=== PATIENT | male | born 1935 | race Caucasian/White ===

== ENCOUNTER 2017-12-26 13:29 | Outpatient (CLI) | payer MEDICARE ==
--- NOTE | 2017-12-26 15:32 | ULT ---
BILATERAL LOWER EXTREMTIY VENOUS DOPPLER WITH SPECTRAL ANALYSIS AND COLOR FLOW EVALUATION: Date: 12-26-17 History: Claudication in both lower extremity. Venostasis dermatitis of both lower extremities. FINDINGS: Grayscale, color flow, and doppler evaluation with spectral analysis of the bilateral lower extremity venous structures is performed with 2D imaging. The bilateral lower extremity common femoral, superf icial femoral, popliteal, posterior tibial, and most proximal greater saphenous and profunda femoral veins bilateral lower extremities are imaged. There is increased echogenic material and decreased lumen compressibility involving the majority of t he bilateral lower extremity deep venous structures including the right lower extremity common femora l, proximal mid superficial femoral, posterior tibial, and profunda femoral veins as well as the left lower extremity common femoral, mid and distal superficial femoral, and profunda femoral veins. Ther e is flow within these veins although there is diminished flow suggesting nonocclusive thrombus. IMPRESSION: 1. Extensive nonocclusive thrombus seen throughout the visualized bilateral lower extremity deep veno us structures. There was partially occlusive bilateral lower extremity thrombus on a prior study on with near complete thrombosis left lower extremity also on that prior exam. 3. Above findings were discussed with Dr. Marin on 12-26-17 at 1454 hours. While there is no eviden ce of an occlusive thrombus on today's examination, the thrombus does appear more extensive than on t he prior study. While there is likely remote thrombus, there has been interval development and progr ession of DVT compared to prior exam. POS: [facility]
--- NOTE | 2017-12-29 07:17 | ULT ---
BILATERAL LOWER EXTREMITY ARTERIAL DOPPLER WITH SPECTRAL ANALYSIS AND COLOR FLOW EVALUATION: Date: 12-26-17 History: Peripheral vascular disease, claudication of bilateral lower extremities, venostasis, dermat itis of both lower extremities. Comparison: None available. FINDINGS: Grayscale, color flow, doppler evaluation, spectral analysis of bilateral lower extremity arterial v essels is performed with 2D imaging. There is atherosclerotic plaque seen throughout the bilateral lower extremity arterial vessels some o f which is calcified. The is triphasic waveform present in the right common femoral artery but the peak systolic velocity i s diminished at 54.1 cm/sec which could be related to a more proximal stenosis. Triphasic waveform is also seen within the right lower extremity profunda femoral artery. There is biphasic waveform in th e right lower extremity suprafascial femoral artery with monophasic waveforms involving the distal ri ght superficial femoral as well as tibial arteries. The popliteal artery is unable to be visualized a nd may be occluded versus severe narrowing of the popliteal artery on the right. In addition, flow is unable to be obtained in the dorsalis pedis artery. Biphasic waveforms are seen involving the left lower extremity common femoral, superficial femoral, p rofunda femoral and popliteal arteries with monophasic waveforms seen within the anterior tibial and dorsalis pedis arteries. No flow is demonstrated within the left lower extremity posterior tibial art jamir. IMPRESSION: 1. Diffuse atherosclerotic vascular disease seen throughout the lower extremity arterial vessels, gre atest involving the below the knee arterial vessels with probable occlusion of the right popliteal ar maxwell. There is also probable occlusion of the left lower extremity posterior tibial and right lower e xtremity dorsalis pedis arteries. 2. Diminished peak systolic velocity in the right common femoral artery compared to the left which co uld be related to inflow stenosis. 3. Ankle brachial indices were not performed due to bilateral lower extremities DVTs. POS: [facility]
== END 2017-12-26 13:30 | disposition home or self-care (01) ==
LOC: ULT 13:29
PROVIDERS: ATTEND Family Medicine
DX: I73.9 Peripheral vascular disease, unspecified (principal); I87.2 Venous insufficiency (chronic) (peripheral); I70.209 Unspecified atherosclerosis of native arteries of extremities, unspecified extremity
CPT/HCPCS: 93923; 93970

== ENCOUNTER 2018-02-16 09:39 | Outpatient (CLI) | payer MEDICARE ==
--- NOTE | 2018-02-18 11:15 | RAD ---
MODIFIED BARIUM SWALLOW: Date: 02/16/18 EXPOSURE: 35.7 seconds. 17.78 mGy*cm^2. HISTORY: Dysphagia unspecified. Feeding difficulties. COMPARISON: None. FINDINGS: Patient administered puree, nectar-thick, thin liquid, and mechanical soft consistencies. No evidenc e of penetration or aspiration. Please refer to speech pathologist's report for feeding recommendatio n. IMPRESSION: As above. POS: [facility]
== END 2018-02-16 09:40 | disposition home or self-care (01) ==
PROVIDERS: ATTEND Family Medicine
DX: R13.10 Dysphagia, unspecified (principal); R63.3 Feeding difficulties
CPT/HCPCS: 74230; G8996-GN-CI; G8997-GN-CI; G8998-GN-CI

== ENCOUNTER 2018-08-07 12:51 | Inpatient (IN) | payer MEDICARE ==
[2018-08-07 13:33] LABS: #Basophils 0.1 thou/uL (0.0-0.2); #Eosinphils 0.1 thou/uL (0.0-0.7); #Lymphocytes 2.6 thou/uL (1.20-3.40); #Monocytes 0.5 thou/uL (0.11-0.59); #Neutrophils 4.8 thou/uL (1.40-6.50); %Basophils 0.7 % (0.0-1.0); %Eosinophils 1.8 % (0.0-10.0); %Lymphocytes 31.7 % (21.0-51.0); %Monocytes 6.5 % (0.0-10.0); %Neutrophils 59.2 % (42.0-75.0); Hemoglobin 12.8 g/dL (14.0-18.0); Mean Corpuscular HGB CONC 33.8 g/dL (32.0-36.0); Mean Corpuscular Hemoglobin 34.9 pg (27.0-31.0); Mean Platelet Volume 5.9 fL (7.4-10.4); Platelet Count 443 thou/uL (130-400); RBC Distribution Width 16.3 % (11.5-14.5); Red Blood Cell (RBC) Count 3.68 mill/uL (4.70-6.10); White Blood Cell (WBC) Count 8.1 thou/uL (4.8-10.8)
[2018-08-07 13:53] LABS: ALT (SGPT) Less than 7 U/L (8-55); AST (SGOT) 15 U/L (5-34); Albumin 2.7 g/dL (3.4-4.8); Alkaline Phosphatase 121 U/L (40-150); BUN (Urea Nitrogen) 5 mg/dL (8.4-25.7); Bilirubin, Total 0.9 mg/dL (0.2-1.2); Calc. Creatinine Clearance 0 mL/min (70-130); Calcium 7.9 mg/dL (7.8-10.44); Estimated GFR-MDRD Greater than 90; Globulin 3.2 g/dL (2.4-3.5); Glucose 107 mg/dL (83-110); Magnesium 1.6 mg/dL (1.6-2.6); Protein, Total 5.9 g/dL (5.8-8.1)
[2018-08-07 13:56] LABS: Chloride 92 mmol/L (98-107); Sodium 140 mmol/L (136-145)
[2018-08-07 14:19] LABS: Carbon Dioxide 31 mmol/L (23-31)
[2018-08-07 14:23] LABS: Potassium 2.5 mmol/L (3.5-5.1)
[2018-08-07] MEDS ORDERED: Potassium Chloride 20 MEQ TAB ONE (14:46)
[2018-08-07 15:29] LABS: Anion Gap 20 mmol/L (10-20)
[2018-08-07 18:12] LABS: Bilirubin Negative (Negative); Blood, Urine Negative (Negative); Clarity CLEAR (Clear); Glucose, Urine (Dipstick) Negative (Negative); Leukocyte Negative (Negative); Nitrite Negative (Negative); Protein, Urine (Dipstick) Negative (Neg-Trace); Specific Gravity, Urine 1.004 (1.002-1.036); pH, Urine 7.5 (5.0-9.0)
[2018-08-07] MEDS ORDERED: Acetaminophen 500 MG TAB PO PRN (20:11)
[2018-08-07 20:50] VITALS: BMI 23.9
[2018-08-07] MEDS ORDERED: Tamsulosin HCl 0.4 MG CAP PO SCH (21:00)
[2018-08-07] MEDS: D5 1/2 NS w/40 mEq KCL 1,000 ML IV SCH (21:44)
[2018-08-07] MEDS: Magnesium Oxide 400 MG TAB PO SCH (21:44)
[2018-08-07] MEDS: Mirtazapine 15 MG TAB PO SCH (21:44)
[2018-08-07] MEDS: Megestrol Acetate 40 MG TAB PO SCH (21:44)
[2018-08-07] MEDS: Apixaban 2.5 MG TAB PO SCH (21:44)
--- NOTE | 2018-08-07 21:57 | HP ---
PRIMARY CARE PHYSICIAN: Russell Marin MD CHIEF COMPLAINT: Hypokalemia and fatigue. HISTORY OF PRESENT ILLNESS: The patient was undergoing routine labs for followup in clinic with myself this morning when critical lab of low potassium approximately 2.5 and 2.7, was called out to my nurse notified the patient and spoke with his daughter regarding likely need for IV replenishment and cardiac risk. They presented to the emergency department for evaluation and was given potassium chloride and magnesium. The patient's EKG was reported to be stable. The patient has macrocytic findings on cell counts and has no current cough, although he has history of aspiration risk , has been on a modified diet pureed, mechanically soft chopped. The patient was seen in the hospital for modified-barium swallow last February for dysphagia and difficulty swallowing. The patient has no acute complaints, states he is compliant with diet changes, but a family member at bedside states that even though he does eat when he is offered meals, he picks at food largely and has quit to Boost shakes as they have given diarrhea, which resolves when he no longer drinks them. ALLERGIES: INCLUDE BEE STINGS AND TETANUS. PAST MEDICAL HISTORY: Colon cancer, hypertension, hyperlipidemia, anemia, glaucoma, urinary retention, claudication, venous stasis dermatitis of lower extremities, history of DVT in lower extremities, osteoarthritis, history of dysphagia. The patient is followed by Dr. Harp for his history of colon cancer and Dr. Parker for urinary retention, Urology. HOME MEDICATIONS: Include Boost shakes t.i.d., he is no longer taking; nystatin ointment p.r.n. for yeast infections; finasteride 5 mg; Eliquis 2.5 mg twice daily. The patient was recommended to take vitamin supplements for his history of folic acid deficiency and macrocytic anemia; however, he discontinued those as well. PAST SURGICAL HISTORY: Including right hemicolectomy with Dr. Harp in 2016 and an appendectomy in 1968. SOCIAL HISTORY: The patient is a former smoker. Denies any alcohol or illicit drug use currently. Lives with spouse with daughter next door for social support. REVIEW OF SYSTEMS: For more review of systems, the patient denies fevers or chills, headaches, vision changes, although has baseline blurred vision given glaucoma. Reports changes in taste buds, decreased appetite, fatigue. No cough. No chest pain. No palpitations. No abdominal pain. Resolved diarrhea once Boost shakes discontinued. No current skin rash or reported breakdown; however, positive lower extremity edema. There have been no skin ulcerations. No confusion. Positive mild depressive symptoms. On speaking with the patient regarding code status, he states he is still full code. He has his spouse to take care of and this is largely his reasoning for staying at home and not progressing towards assisted living facility. He is much more amicable towards palliative route regarding any feeding tube necessary to sustain his life, he does not want this, he is not yet ready to discuss DNR/DNI as per his spouse as above. I spoke with daughter at bedside, verbalized understanding and echoed the patient's desire to remain with his spouse on this earth at this point in time, but not wanting aggressive therapies for feeding tube or the like. PHYSICAL EXAMINATION: GENERAL: The patient is alert and oriented, in no acute distress. HEENT: Head is normocephalic and atraumatic. Temporal wasting is noted. Oral mucosa is moist. No thrush present. HEART: Regular rate and rhythm. No murmurs auscultated. LUNGS: Clear to auscultation bilaterally. No rubs or wheezes. ABDOMEN: Soft, nontender. Positive bowel sounds throughout. EXTREMITIES: Lower extremities with pitting edema 2+ bilaterally. No cyanosis present. NEUROLOGIC: The patient alert and oriented x3. No focal deficits. Speech is normal. ASSESSMENT AND PLAN: Severe hypokalemia and protein malnutrition, severe. Would have to follow up on patient's weight from prior visits, but looking like adult failure to thrive. We will consult Speech Therapy for history of dysphagia with the patient's modified diet. Physical Therapy to help mobilize the patient. Dietary to help recommendations for something other than Boost shakes, they may be too rich for his malnutrition and caused dumping syndrome. Regarding diarrhea, may need to titrate it more slowly, but he is obviously not meeting his daily requirements. We will perform IV fluids overnight to rehydrate and then consider diuretics to help lower extremity edema and mobilization, and going forward tomorrow, restart the patient's magnesium oxide that he self discontinued prior along with B vitamins, continue the patient's home Flomax, finasteride, Eliquis for history of DVT. We will follow up on potassium trend tomorrow. Will consider a throat culture here in case the patient has underlying bacterial or fungal infection given his malnutrition. At this point in time, we would not seek to get feeding tube per patient's wishes. May consider palliative consultation for any additional discomfort, the patient is feeling. Continue potassium and mag trend and replacement. Job ID: [id number] MTDD
[2018-08-08 06:27] LABS: ALT (SGPT) Less than 7 U/L (8-55); AST (SGOT) 15 U/L (5-34); Alkaline Phosphatase 85 U/L (40-150); Anion Gap 6 mmol/L (10-20); BUN (Urea Nitrogen) Less than 4 mg/dL (8.4-25.7); Bilirubin, Total 0.9 mg/dL (0.2-1.2); Calc. Creatinine Clearance 92 mL/min (70-130); Calcium 7.3 mg/dL (7.8-10.44); Carbon Dioxide 35 mmol/L (23-31); Chloride 103 mmol/L (98-107); Estimated GFR-MDRD Greater than 90; Globulin 2.6 g/dL (2.4-3.5); Glucose 116 mg/dL (83-110); Magnesium 1.4 mg/dL (1.6-2.6); Protein, Total 4.6 g/dL (5.8-8.1); Sodium 142 mmol/L (136-145)
[2018-08-08 06:30] LABS: Potassium 2.4 mmol/L (3.5-5.1)
[2018-08-08] MEDS ORDERED: Magnesium 2 GM/50 ML 2 GM in Premix Bag 1 BAG IVPB SCH (06:45)
[2018-08-08] MEDS ORDERED: Potassium Chloride 40 MEQ in Premix Bag 1 BAG IVPB SCH (06:45)
[2018-08-08] MEDS ORDERED: Potassium Chloride 20 MEQ TAB PO SCH ×2 (08:00→13:15)
[2018-08-08] MEDS: D5 1/2 NS w/40 mEq KCL 1,000 ML IV SCH (08:16)
[2018-08-08] MEDS: Finasteride 5 MG TAB PO SCH (08:20)
[2018-08-08] MEDS: Multivitamin W/ Minerals 1 TAB PO SCH (08:20)
[2018-08-08] MEDS: Thiamine 100 MG TAB PO SCH (08:20)
[2018-08-08] MEDS: Apixaban 2.5 MG TAB PO SCH ×2 (08:20→20:49)
[2018-08-08] MEDS: Cyanocobalamin (Vitamin B-12) 1,000 MCG TAB PO SCH (08:20)
[2018-08-08] MEDS: Megestrol Acetate 40 MG TAB PO SCH ×3 (08:20→20:49)
[2018-08-08] MEDS: Tamsulosin HCl 0.4 MG CAP PO SCH (08:21)
[2018-08-08] MEDS: Fluconazole 100 MG TAB PO SCH (08:21)
[2018-08-08] MEDS: Folic Acid 1 MG TAB PO SCH (08:21)
[2018-08-08] MEDS: Magnesium Oxide 400 MG TAB PO SCH ×2 (08:21→20:49)
[2018-08-08] MEDS: Potassium Chloride 20 MEQ in Premix Bag 1 BAG IVPB SCH ×2 (09:14→11:07)
--- NOTE | 2018-08-08 11:23 | RAD ---
TWO VIEWS CHEST: DATE: 08/08/2018. PROVIDED CLINICAL HISTORY: Aspiration. FINDINGS: Comparison 04/04/2016. Cardiac and mediastinal silhouette is unchanged in appearance. Vascular calc ification involves the aortic arch. No focal consolidation, pleural fluid, or pneumothorax apparent. IMPRESSION: No evidence for an acute cardiopulmonary process. POS: [facility]
--- NOTE | 2018-08-08 12:36 | PRG ---
DATE OF SERVICE: 08/08/2018 HISTORY OF PRESENT ILLNESS: The patient states that he was unable to sleep given everything going on in the hospital with IV fluid rehydration. He had urinary retention, that was found by nursing staff after having lots of pain and pressure in lower pelvis. He did have episode of diarrhea that was reported nonbloody. His pain was relieved by Pérez catheter placement after bladder scan showed 900 mL retention plus. The patient continues to feel fatigued, possibly even more so today after he has not slept very well in the last 2 days. Potassium this morning came back critical again. The patient had magnesium and potassium replacement IV again this morning with trend to follow. The patient verbalized understanding. Continuation of plan was physical therapy, speech therapy, and dietitian consultations. Again his wishes were not to pursue feeding tube at this point in time. PHYSICAL EXAMINATION: VITAL SIGNS: Temperature of 97.4, pulse of 76, respiratory rate of 15, oxygen saturation 97% on room air, and blood pressure of 93/54. GENERAL: The patient is alert and oriented, in no acute distress. HEENT: Head is normocephalic and atraumatic. Extraocular movements are intact. Temporal wasting is noted. Oral mucosa is moist. NECK: Supple. HEART: Regular rate and rhythm at the time of exam. LUNGS: Clear to auscultation bilaterally. No rubs or wheezes. ABDOMEN: Soft and nontender. Positive bowel sounds throughout. Pérez catheter in place. EXTREMITIES: Lower extremity with improving pitting edema, however, still 1+. The patient has not been out of bed since admission. This is likely, we will transition towards the patient's buttocks and testicles over the next several days, discussed with the patient. NEUROLOGIC: The patient is alert and oriented x3. No focal deficits. Speech is normal. LABORATORY DATA: Potassium this a.m. of 2.4, sodium of 142, creatinine of 0.59, and magnesium of 1.4. Albumin of 2.0. Following IV rehydration, repeat pending at approximately noon today following magnesium and potassium IV replenishment. Chest x-ray without acute cardiopulmonary events. Pending oral mucosal throat culture. ASSESSMENT AND PLAN: 1. Hypokalemia, severe. 2. Hypomagnesemia. 3. Malnutrition, severe. 4. Adult failure to thrive. 5. Depression. 6. Dysphagia. 7. BPH with obstructive symptoms. We will continue to trend electrolytes as above with replacement and hopefully transition to orals. The direct line of cause is likely the patient's malnutrition. However, he may have some element of dumping syndrome with rich foods, so this may be difficult to re-nurse him quickly. We will seek dietary's advice on calorie counts. Going forward, having speech therapy and physical therapy re-evaluate the patient. Continuing with Pérez catheter for obstructive symptoms and otherwise, his home finasteride and tamsulosin. Started Remeron as well as Megace to attempt to help improve mood and appetite stimulation. This will need to be reassessed over the next following days to weeks to see full effect. We will follow up on electrolytes this afternoon. Job ID: [id number]
[2018-08-08 13:01] LABS: Anion Gap 8 mmol/L (10-20); BUN (Urea Nitrogen) 4 mg/dL (8.4-25.7); Calc. Creatinine Clearance 95 mL/min (70-130); Calcium 7.4 mg/dL (7.8-10.44); Carbon Dioxide 35 mmol/L (23-31); Chloride 102 mmol/L (98-107); Estimated GFR-MDRD Greater than 90; Glucose 94 mg/dL (83-110); Sodium 142 mmol/L (136-145)
[2018-08-08 13:07] LABS: Potassium 2.9 mmol/L (3.5-5.1)
[2018-08-08] MEDS: Potassium Chloride 20 MEQ TAB PO SCH (16:57)
[2018-08-08 20:00] LABS: Anion Gap 8 mmol/L (10-20); BUN (Urea Nitrogen) 5 mg/dL (8.4-25.7); Calc. Creatinine Clearance 89 mL/min (70-130); Calcium 7.9 mg/dL (7.8-10.44); Carbon Dioxide 35 mmol/L (23-31); Chloride 101 mmol/L (98-107); Estimated GFR-MDRD Greater than 90; Glucose 94 mg/dL (83-110); Potassium 3.6 mmol/L (3.5-5.1); Sodium 140 mmol/L (136-145)
[2018-08-08] MEDS: Mirtazapine 15 MG TAB PO SCH (20:49)
[2018-08-09 06:18] LABS: #Eosinphils 0.4 thou/uL (0.0-0.7); #Lymphocytes 2.3 thou/uL (1.20-3.40); #Monocytes 0.5 thou/uL (0.11-0.59); #Neutrophils 4.4 thou/uL (1.40-6.50); %Basophils 0.4 % (0.0-1.0); %Eosinophils 5.1 % (0.0-10.0); %Lymphocytes 30.4 % (21.0-51.0); %Monocytes 6.5 % (0.0-10.0); %Neutrophils 57.5 % (42.0-75.0); Hemoglobin 10.2 g/dL (14.0-18.0); Mean Corpuscular HGB CONC 33.7 g/dL (32.0-36.0); Mean Corpuscular Hemoglobin 35.5 pg (27.0-31.0); Mean Platelet Volume 6.3 fL (7.4-10.4); Platelet Count 350 thou/uL (130-400); Red Blood Cell (RBC) Count 2.87 mill/uL (4.70-6.10); White Blood Cell (WBC) Count 7.6 thou/uL (4.8-10.8)
[2018-08-09 06:43] LABS: ALT (SGPT) Less than 7 U/L (8-55); AST (SGOT) 12 U/L (5-34); Albumin 1.9 g/dL (3.4-4.8); Alkaline Phosphatase 81 U/L (40-150); Anion Gap 9 mmol/L (10-20); BUN (Urea Nitrogen) 6 mg/dL (8.4-25.7); Bilirubin, Total 0.5 mg/dL (0.2-1.2); Calc. Creatinine Clearance 95 mL/min (70-130); Calcium 7.2 mg/dL (7.8-10.44); Carbon Dioxide 28 mmol/L (23-31); Chloride 105 mmol/L (98-107); Estimated GFR-MDRD Greater than 90; Globulin 2.5 g/dL (2.4-3.5); Glucose 94 mg/dL (83-110); Protein, Total 4.4 g/dL (5.8-8.1); Sodium 139 mmol/L (136-145)
[2018-08-09] MEDS ORDERED: Potassium Chloride 20 MEQ TAB PO SCH ×2 (07:30→12:45)
[2018-08-09] MEDS: Fluconazole 100 MG TAB PO SCH (08:59)
[2018-08-09] MEDS: Cyanocobalamin (Vitamin B-12) 1,000 MCG TAB PO SCH (08:59)
[2018-08-09] MEDS: Magnesium Oxide 400 MG TAB PO SCH ×2 (08:59→22:07)
[2018-08-09] MEDS: Megestrol Acetate 40 MG TAB PO SCH ×3 (08:59→22:07)
[2018-08-09] MEDS: Folic Acid 1 MG TAB PO SCH (08:59)
[2018-08-09] MEDS: Tamsulosin HCl 0.4 MG CAP PO SCH (08:59)
[2018-08-09] MEDS: Potassium Chloride 20 MEQ TAB PO SCH (08:59)
[2018-08-09] MEDS: Finasteride 5 MG TAB PO SCH (08:59)
[2018-08-09] MEDS: Apixaban 2.5 MG TAB PO SCH ×2 (08:59→22:07)
[2018-08-09] MEDS: Multivitamin W/ Minerals 1 TAB PO SCH (08:59)
[2018-08-09] MEDS: Thiamine 100 MG TAB PO SCH (08:59)
--- NOTE | 2018-08-09 13:14 | PRG ---
DATE OF SERVICE: 08/09/2018 HISTORY OF PRESENT ILLNESS: The patient is not sleeping very well as he is continuously struggling with flatus and in his terms explosive diarrhea. He will feel an urge coming on and only pass gas, move to commode back and forth, but only have a bowel movement approximately every 3 trips, compared to flatus. States that this has gone on outpatient as well regarding diarrhea that comes and goes over the last several months. Seems to be worse with certain foods. He particularly is blaming the Boost Ensure shakes, but is compliant with current medications including potassium replacement. Denies any blood in stool at this point in time, is amicable to stool studies and Gastroenterology evaluation for his diarrhea complicating his replacement of potassium at this point in time. He states he is making a concerted effort to eat much more of his plate. He ate eggs, sausage and ancillary offering this morning for breakfast. Review of vital signs, temperature 98.3, pulse of 85, respiratory rate of 20, oxygen saturation 98% on room air. Blood pressure 97/63. Throat culture is normal. Potassium this morning is 3.0, sodium 139, creatinine of 0.5, albumin 1.9, hemoglobin of 10.2, white blood cell count 7.6, platelet count of 330. PHYSICAL EXAMINATION: GENERAL: The patient is alert and oriented, in no acute distress. HEENT: Head is normocephalic and atraumatic. Temporal wasting is noted. Oral mucosa is moist. HEART: Regular rate and rhythm. No murmurs auscultated. LUNGS: Clear to auscultation bilaterally. No rubs or wheezes. ABDOMEN: Soft, nontender. Positive bowel sounds throughout. EXTREMITIES: Lower extremities without cyanosis or edema. Some third spacing noted more toward the buttock today on exam. NEUROLOGICAL: Speech is normal. No focal deficits. ASSESSMENT AND PLAN: Severe hypokalemia, improving. However, gastrointestinal losses with diarrhea complicating the picture. Increasing oral replacement to a total of 100 mEq per day today with replacement on each meal. Continuing magnesium supplementation as well as Boost shakes at this point in time. I consulted Gastroenterology to evaluate for possible dumping syndrome, testing stools for any infectious causes, continuing patient's medications Megace as well as mirtazapine for a boost in appetite and mood improvement. Regarding patient's adult failure to thrive, Speech Therapy evaluated the patient, does recommend home health speech therapy going home but reiterated mechanical soft diet this admission. The patient is still with Pérez catheter at this point in time given his BPH with obstructive symptoms. Following up on culture once it is read as Gram negative rods low colony-forming units initially. We will treat as indicated per final culture report. We will continue to trend and replace electrolytes for the time being and follow up on stool and gastrology recommendations for prevention of further GI losses. Job ID: [id number]
[2018-08-09 17:20] LABS: Anion Gap 8 mmol/L (10-20); BUN (Urea Nitrogen) 9 mg/dL (8.4-25.7); Calc. Creatinine Clearance 76 mL/min (70-130); Calcium 7.5 mg/dL (7.8-10.44); Carbon Dioxide 30 mmol/L (23-31); Chloride 105 mmol/L (98-107); Estimated GFR-MDRD Greater than 90; Glucose 92 mg/dL (83-110); Potassium 4.1 mmol/L (3.5-5.1); Sodium 139 mmol/L (136-145)
[2018-08-09] MEDS: Mirtazapine 15 MG TAB PO SCH (22:07)
--- NOTE | 2018-08-10 02:26 | PRG ---
DATE OF SERVICE: 08/10/2018 HISTORY OF PRESENT ILLNESS: The patient has not had any further episodes of diarrhea or bowel movement since stool studies have been ordered. The patient has tolerated milk most of his life, but given his more severe reactions to boost, Dr. Elmore mentioned possible allergy to milk proteins. The patient is interested in potential food allergy testing and is able to verbalize understanding regarding improved potassium with goals to DC Pérez catheter and continue to push diet over the next 24 hours. If no further setbacks or interventions with Gastroenterology, potential discharge looking at Friday. Noted CEA and abdomen plain films pending. The patient has no acute complaints. Temperature of 99.9, heart rate of 102, respiratory rate of 18, oxygen saturation 99% on room air, blood pressure 99/59. A.m. labs are pending. We will add allergy panel on board. Last potassium at 1657 yesterday evening of 4.1, low colony-forming E coli was grown on urine. Throat culture was normal anna. PHYSICAL EXAMINATION: GENERAL: The patient is alert and oriented, in no acute distress. HEENT: Head is normocephalic and atraumatic. Temporal wasting is noted. Oral mucosa is moist. NECK: Supple. HEART: Regular rate and rhythm at the time of exam. No murmurs auscultated. LUNGS: Clear to auscultation bilaterally. No rubs or wheezes. ABDOMEN: Soft and nontender. Positive bowel sounds. EXTREMITIES: Throughout lower extremities without cyanosis or edema, some third spacing to buttocks on exam currently, Pérez catheter in place. NEUROLOGIC: The patient is alert and oriented x3. No focal deficits. Speech is normal. ASSESSMENT AND PLAN: 1. Hypokalemia, currently resolved. He was facing additional GI loss issue up until yesterday morning. If the patient does have diarrhea, we will follow up with stool studies as ordered and Gastroenterology's recommendations. Continue to replace potassium and magnesium orally with plan to continue this on an outpatient basis. Continuing Remeron and Megace for the time being for appetite stimulation given patient's protein malnutrition and difficulty of holding on to electrolytes secondarily complicating situation. We will attempt to DC Pérez catheter later today and follow up with patient's standard Proscar and tamsulosin as outpatient. Speech Therapy, Physical Therapy recommending home health continuation of therapy services, had consult Case Management yesterday for setting this up. We will allow them to meet with the family hopefully later today and set up for potential discharge on Friday if no further setbacks. The patient is currently anticoagulated with Eliquis for history of blood clots. Job ID: [id number] MTDD
--- NOTE | 2018-08-10 04:40 | CON ---
DATE OF CONSULTATION: 08/09/2018 CHIEF COMPLAINT: Diarrhea. HISTORY OF PRESENT ILLNESS: Mr. Bolden is an 83-year-old man who was admitted to the hospital on 08/07/2018 for hypokalemia and fatigue. He reported explosive liquidy stools, which was felt to be the cause of the hypokalemia. He believes he gets diarrhea 1 to 3 times per day and he also has multiple episodes of nonproductive urges, where he just passes gas. He did take some Boost shakes that caused immediate diarrhea at 3 different times, so he quit taking those. He has had the gas and intermittent diarrhea over the last year at least, if not longer. He has had no nausea or vomiting. No abdominal pain. He reports his weight is stable. GI was consulted to further evaluate diarrhea. He had colon cancer diagnosed in 02/2016 by colonoscopy and he subsequently underwent a right hemicolectomy in 02/2016. He was treated for Clostridium difficile colitis in 02/2016 as well. PAST MEDICAL HISTORY: Colon cancer, status post right hemicolectomy. It does not appear that he has had a followup colonoscopy since then. However, we would have to review our clinic record as well. The patient appears to have some memory problems. Hypertension, hyperlipidemia, myocardial infarction, history of alcohol abuse, C diff colitis, osteoarthritis, DVT, urinary retention, and glaucoma. PAST SURGICAL HISTORY: Right hemicolectomy, appendectomy, foot surgery. FAMILY HISTORY: Negative for GI malignancies. SOCIAL HISTORY: He has former history of alcohol abuse. No current smoking or drugs or ongoing alcohol use. ALLERGIES: TETANUS, BEE STING. MEDICATIONS: Prior to admission; 1. Finasteride. 2. Eliquis. 3. Tamsulosin. REVIEW OF SYSTEMS: Negative x10 systems reviewed except as stated in the history of present illness. PHYSICAL EXAMINATION: VITAL SIGNS: Temperature 99.9, pulse 102, and blood pressure 99/59. GENERAL: He is in no acute distress. Awake and alert. LUNGS: Clear to auscultation bilaterally. HEART: Regular rate and rhythm without murmur. HEENT: Eyes have no scleral icterus. Oropharynx is clear without lesions. No cervical or supraclavicular lymphadenopathy. ABDOMEN: Soft, nontender, and nondistended. Bowel sounds are present. EXTREMITIES: Trace lower extremity edema. LABORATORY DATA: White blood cell count 7.6, hemoglobin 10.2, and platelets 350. INR 1.3, creatinine 0.57. Bilirubin 0.5, AST 12, ALT 7, alkaline phosphatase 81, albumin 1.9. IMPRESSION: 1. Diarrhea with hypokalemia. We will need to rule out recurrent Clostridium difficile colitis. Stool study has been ordered. However, the patient has actually had no bowel movement today. Regarding the chronic diarrhea, other possibilities could include decreased related to his hemicolectomy. However, he should have been able to adapt to this. He does report significant dairy intake and lactose intolerance should be considered. He is not on medications expected to cause significant diarrheal side effect. 2. History of colon cancer. He does not appear to have had a followup colonoscopy, but we will need to access the medical records and we are able. I am currently unable to get into our office computer system. 3. Protein-calorie malnutrition. He does report some bloating after eating. RECOMMENDATIONS: 1. Stool for C diff culture, ova and parasite. 2. Check an abdominal x-ray to rule out obvious significant constipation as overflow diarrhea could be an issue as well. The patient had constipation and anal fissure in the past. He is highly concerned about rectal exam and pain with past rectal exam. We will plan starting with an x-ray to evaluate this. 3. If the symptoms persist and stool studies are negative, then consider upper and lower endoscopy . We will follow him clinically. Job ID: [id number]
[2018-08-10 06:56] LABS: Anion Gap 12 mmol/L (10-20); BUN (Urea Nitrogen) 10 mg/dL (8.4-25.7); Calc. Creatinine Clearance 82 mL/min (70-130); Calcium 7.5 mg/dL (7.8-10.44); Carbon Dioxide 22 mmol/L (23-31); Chloride 107 mmol/L (98-107); Estimated GFR-MDRD Greater than 90; Glucose 87 mg/dL (83-110); Potassium 4.6 mmol/L (3.5-5.1); Sodium 136 mmol/L (136-145)
[2018-08-10] MEDS: Multivitamin W/ Minerals 1 TAB PO SCH (08:29)
[2018-08-10] MEDS: Potassium Chloride 20 MEQ TAB PO SCH ×2 (08:29→17:18)
[2018-08-10] MEDS: Folic Acid 1 MG TAB PO SCH (08:29)
[2018-08-10] MEDS: Finasteride 5 MG TAB PO SCH (08:29)
[2018-08-10] MEDS: Apixaban 2.5 MG TAB PO SCH ×2 (08:29→20:26)
[2018-08-10] MEDS: Tamsulosin HCl 0.4 MG CAP PO SCH (08:29)
[2018-08-10] MEDS: Magnesium Oxide 400 MG TAB PO SCH ×2 (08:29→20:26)
[2018-08-10] MEDS: Cyanocobalamin (Vitamin B-12) 1,000 MCG TAB PO SCH (08:29)
[2018-08-10] MEDS: Thiamine 100 MG TAB PO SCH (08:29)
[2018-08-10] MEDS: Fluconazole 100 MG TAB PO SCH (08:29)
[2018-08-10] MEDS: Megestrol Acetate 40 MG TAB PO SCH ×3 (08:36→20:26)
--- NOTE | 2018-08-10 11:41 | RAD ---
ABDOMEN TWO VIEWS: INDICATIONS: Abdominal pain. Constipation. TECHNIQUE: Supine and upright views obtained. FINDINGS: The bowel gas pattern shows increased small bowel gas with nonspecific small bowel distention seen in the right abdomen. There is question of a few differential air-fluid levels on the upright view, ra ising the possibility of low grade obstruction. There is some scattered gas seen in the colon, predo minantly the transverse colon. No evidence of free intraperitoneal air. IMPRESSION: There is increased small bowel gas seen in the right abdomen. There is evidence of prior surgery wit h radiopaque suture overlying the right upper quadrant. Small bowel gas pattern is nonspecific, with out significant dilatation, although there is mild gaseous distention of several loops of small bowel in the right abdomen. POS: [facility]
[2018-08-10] MEDS: Mirtazapine 15 MG TAB PO SCH (20:26)
--- NOTE | 2018-08-10 21:48 | PRG ---
DATE OF SERVICE: 08/10/2018 SUBJECTIVE: Mr. Bolden states he has no pain. He states he had one diarrheal stool today. He is a poor historian. OBJECTIVE: VITAL SIGNS: Temperature 97.9, pulse 84, blood pressure 104/67. GENERAL: He is sitting comfortably in bed. He has . NECK: Supple. No adenopathy. LUNGS: Clear. HEART: Regular rate and rhythm without clicks or murmurs. ABDOMEN: Soft and nontender. LABORATORY DATA: Sodium today is 136, potassium 4.6, BUN and creatinine 10 and 0.66. The patient's albumin is 1.9. MICROBIOLOGY: Giardia and cryptosporidium negative. Stool lactoferrin negative. Stool culture negative for shiga toxins. Negative for Campylobacter. Cold blood negative. C. diff antigen toxin negative. Abdominal x-ray, no overt signs of constipation. ASSESSMENT: 1. This 83-year-old gentleman who was admitted with some hypokalemia and reported history of diarrhea, although he has not had any here. Stool is negative for blood, inflammatory markers, Clostridium difficile. 2. Hypokalemia, resolved. 3. Malnutrition. It is not clear this is related to poor p.o. intake and diarrhea. Chest x-ray on 08/08 normal. RECOMMENDATIONS: 1. Check stool for fecal fat. CEA is 1.49. 2. If diarrhea persists, consider endoscopy. Job ID: [id number]
[2018-08-11] MEDS: Cyanocobalamin (Vitamin B-12) 1,000 MCG TAB PO SCH (08:14)
[2018-08-11] MEDS: Thiamine 100 MG TAB PO SCH (08:14)
[2018-08-11] MEDS: Potassium Chloride 20 MEQ TAB PO SCH (08:14)
[2018-08-11] MEDS: Fluconazole 100 MG TAB PO SCH (08:14)
[2018-08-11] MEDS: Tamsulosin HCl 0.4 MG CAP PO SCH (08:14)
[2018-08-11] MEDS: Magnesium Oxide 400 MG TAB PO SCH (08:14)
[2018-08-11] MEDS: Folic Acid 1 MG TAB PO SCH (08:14)
[2018-08-11] MEDS: Multivitamin W/ Minerals 1 TAB PO SCH (08:14)
[2018-08-11] MEDS: Finasteride 5 MG TAB PO SCH (08:14)
[2018-08-11] MEDS: Megestrol Acetate 40 MG TAB PO SCH (08:15)
[2018-08-11] MEDS: Apixaban 2.5 MG TAB PO SCH (09:12)
[2018-08-11 09:19] VITALS: BP 103/58; TEMP 97.9
--- NOTE | 2018-08-12 04:27 | DIS ---
DATE OF ADMISSION: 08/07/2018 DATE OF DISCHARGE: 08/11/2018 CHIEF COMPLAINT: Hypokalemia and fatigue. HOSPITAL COURSE: The patient was undergoing routine outpatient laboratory work, found to have critical potassium as well as hypoalbuminemia suggestive of likely low magnesium and malnutrition present on admission. The patient had been evaluated for dysphagia and placed a mechanical soft diet late last year, has struggled to keep up with diet, is ambulatory, lives at home, has a significant history of obstructive symptoms with benign prostatic hyperplasia. A Pérez catheter was placed during hospital stay for mobilization of urine while IV fluids were started. The patient was fully off Pérez catheter for 24 hours prior to discharge. Continued on tamsulosin and finasteride. The patient was re-evaluated by Speech Therapy as well as Physical Therapy, recommended home health continuation and case management set up [facility] to follow the patient. Dietary saw the patient, recommended high- protein Ensure Enlive shakes; however, the patient continued to have blowout diarrhea. Stool studies were negative. Following up on culture that is still pending and food allergy panel is pending and look at colonoscopy on an outpatient basis if the patient continues to have stools. He reports that these are intermittent, blowout stools have occurred for the last several months until last year, worse whenever he drinks boost shakes. However, the patient states he has been drinking milk and eating cheese, etc., for all of his life without this happening before. The patient's hypokalemia was resolved following resolution of hypomagnesemia. The patient with wasting and still desires to be full code given that his is still ambulatory and lives at home with him. Thus, he does not want to go to rehab facility as well. DISCHARGE DIAGNOSES: Include: 1. Resolved severe hypokalemia. 2. Resolved hypomagnesemia. 3. Protein malnutrition, severe, with adult failure to thrive. 4. Depression. 5. Dysphagia. 6. 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 7. Diarrhea, chronic. DISCHARGE MEDICATIONS: Included: 1. Eliquis 2.5 mg b.i.d. for DVT history. 2. Finasteride 5 mg daily. 3. Lactobacillus daily. 4. Flomax 0.4 mg daily. 5. Cyanocobalamin 1000 mcg daily for microcytic anemia. 6. Folic acid 1 mg daily. 7. Magnesium oxide 400 mg p.o. b.i.d. 8. Megace 40 mg with meal t.i.d. 9. Remeron 15 mg at bedtime. 10. Multivitamin. 11. Potassium chloride 20 mEq b.i.d. with meal. 12. Thiamine 100 mg daily. DISCHARGE INSTRUCTIONS: The patient will follow up with me, Dr. Russell Marin , his PCP on an outpatient basis within the week. The patient currently has appointment on Friday. We will recheck potassium. Then, follow up with Gastroenterology likely on an outpatient basis if stooling continues and look to perform Endoscopy final read of stool culture and food allergy panel as it comes back. The patient discharged home with home health, physical therapy, speech therapy by [facility]. DIET: Mechanically soft, thin liquids, extra sauces mechanically or chopped as well purees as well. DISCHARGE ACTIVITY: As tolerated. Job ID: [id number] [facility]
[2018-08-12 15:31] LABS: Allergen,Egg white IgE Less than 0.10 kU/L (Less than 0.10); Allergen,Milk IgE Less than 0.10 kU/L (Less than 0.10); Allergen,Peanut IgE Less than 0.10 kU/L (Less than 0.10); Allergen,Shrimp IgE Less than 0.10 kU/L (Less than 0.10); Allergen,Soybean IgE Less than 0.10 kU/L (Less than 0.10); Allergen,Wheat IgE Less than 0.10 kU/L (Less than 0.10); IgE Total Antibody 48.8 kU/L (0-192.0)
== END 2018-08-11 10:45 | disposition home health service (06) | DRG 640 ==
LOC: ERS 12:51 → ERHOLD 16:07 → 2NO 20:04
PROVIDERS: ADMIT Family Medicine; ATTEND Family Medicine
DX: E87.6 Hypokalemia (principal); E43 Unspecified severe protein-calorie malnutrition; I50.30 Unspecified diastolic (congestive) heart failure; E78.5 Hyperlipidemia, unspecified; H40.9 Unspecified glaucoma; M19.90 Unspecified osteoarthritis, unspecified site; D50.9 Iron deficiency anemia, unspecified; R33.9 Retention of urine, unspecified; E83.42 Hypomagnesemia; F32.9 Major depressive disorder, single episode, unspecified; I11.0 Hypertensive heart disease with heart failure; N40.1 Benign prostatic hyperplasia with lower urinary tract symptoms; R13.10 Dysphagia, unspecified; K52.9 Noninfective gastroenteritis and colitis, unspecified; Z87.891 Personal history of nicotine dependence; Z79.01 Long term (current) use of anticoagulants; Z88.8 Allergy status to other drugs, medicaments and biological substances; Z68.23 Body mass index [BMI] 23.0-23.9, adult; Z86.718 Personal history of other venous thrombosis and embolism; Z91.030 Bee allergy status; Z85.038 Personal history of other malignant neoplasm of large intestine; Z90.49 Acquired absence of other specified parts of digestive tract
CPT/HCPCS: 36415; 71046; 74019; 80048; 80053; 80061; 81003; 82274; 82378; 82785; 83630; 83735; 85025; 87045; 87046; 87070; 87086; 87324; 87328; 87329; 87449; 87899; 93005; 96361; 96365; 96366; 99292; J3475; J3480; J7050; S0179

== ENCOUNTER 2018-08-18 13:24 | Outpatient (CLI) | payer MEDICARE ==
--- NOTE | 2018-08-18 14:40 | ULT ---
FBilateral lower extremity venous Doppler ultrasound: 08/18/2018 COMPARISON: None HISTORY: Thrombosis, assess for DVT TECHNIQUE: Multiplanar grayscale sonographic imaging of the venous structures of the bilateral lower extremities obtained with color flow and spectral analysis FINDINGS:Bilateral common femoral vein, greater saphenous vein, profunda femoral vein, femoral vein, popliteal vein, and posterior tibial vein appear patent. Normal blood flow, augmentation, and sandi marli within the deep venous system. No evidence for DVT. IMPRESSION: No evidence for deep venous thrombosis of either lower extremity.
== END 2018-08-18 13:25 | disposition home or self-care (01) ==
LOC: ULT 13:24
PROVIDERS: ATTEND Family Medicine
DX: I82.409 Acute embolism and thrombosis of unspecified deep veins of unspecified lower extremity (principal); M79.604 Pain in right leg; M79.605 Pain in left leg
CPT/HCPCS: 93970

== ENCOUNTER 2018-09-16 16:53 | Emergency (ER) | payer MEDICARE ==
--- NOTE | 2018-09-16 17:31 | RAD ---
Radiograph left shoulder 3 views: HISTORY: 83-year-old male with left shoulder pain FINDINGS: At the glenohumeral joint there is moderate joint space narrowing, and large inferiorly located osteo phytes. No subluxation or dislocation. No fracture. AC joint is poorly visualized. 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
== END 2018-09-16 17:54 | disposition home or self-care (01) ==
LOC: SCSER 16:53
DX: M19.012 Primary osteoarthritis, left shoulder (principal); Z86.73 Personal history of transient ischemic attack (TIA), and cerebral infarction without residual deficits; Z87.891 Personal history of nicotine dependence; Z79.899 Other long term (current) drug therapy

== ENCOUNTER 2019-10-22 07:19 | Emergency (ER) | payer MEDICARE, OTHER ==
[2019-10-22 08:05] LABS: #Lymphocytes 1.9 thou/uL (1.20-3.40); #Monocytes 0.6 thou/uL (0.11-0.59); #Neutrophils 2.7 thou/uL (1.40-6.50); %Basophils 0.8 % (0.0-1.0); %Eosinophils 0.8 % (0.0-10.0); %Monocytes 11.4 % (0.0-10.0); Hemoglobin 15.3 g/dL (14.0-18.0); Mean Corpuscular HGB CONC 34.6 g/dL (32.0-36.0); Mean Corpuscular Hemoglobin 33.5 pg (27.0-31.0); Mean Corpuscular Volume 96.9 fL (78.0-98.0); Platelet Count 282 thou/uL (130-400); RBC Distribution Width 12.8 % (11.5-14.5); Red Blood Cell (RBC) Count 4.58 mill/uL (4.70-6.10); White Blood Cell (WBC) Count 5.3 thou/uL (4.8-10.8)
[2019-10-22 08:19] LABS: ALT (SGPT) 19 U/L (8-55); AST (SGOT) 33 U/L (5-34); Albumin 3.1 g/dL (3.4-4.8); Alkaline Phosphatase 115 U/L (40-110); Anion Gap 18 mmol/L (10-20); BUN (Urea Nitrogen) 7 mg/dL (8.4-25.7); Calc. Creatinine Clearance 0 mL/min (70-130); Calcium 7.9 mg/dL (7.8-10.44); Carbon Dioxide 27 mmol/L (23-31); Chloride 93 mmol/L (98-107); Estimated GFR-MDRD Greater than 90; Globulin 3.6 g/dL (2.4-3.5); Glucose 96 mg/dL (83-110); Protein, Total 6.7 g/dL (5.8-8.1); Sodium 135 mmol/L (136-145)
--- NOTE | 2019-10-22 08:23 | CT ---
CT HEAD WITHOUT IV CONTRAST COMPARISON: None HISTORY: Headache. Patient states diffuse throbbing headache over past 4 days. Episodes of vomiting. 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 Scattered low-attenuation areas are seen within the periventricular white matter which are nonspecific but likely attributable to chronic small vessel ischemic changes. Low-density a yoana in the right basal ganglia is present likely related to a lacunar infarction of which the exact age is indeterminate but likely more remote in origin. There is no evidence of an acute infarction, h emorrhage, mass effect, or midline shift. Diffuse cerebral volume loss is present. The ventricular system is normal in size, shape, and position for the degree of sulcal atrophy. Mild thickening of gallardo of the left maxillary antrum suggesting a chronic process. Visualized parana rachel sinuses and mastoid air cells are otherwise clear. Osseous structures appear intact. IMPRESSION: 1. No acute intracranial abnormality demonstrated. 2. Chronic changes.
[2019-10-22] MEDS ORDERED: Potassium Chloride 20 MEQ TAB ONE (09:12)
--- NOTE | 2019-10-22 10:29 | ULT ---
VENOUS DOPPLER ULTRASOUND OF THE RIGHT LOWER EXTREMITY: Date: 10/22/2019 HISTORY: Right lower extremity edema and erythema. TECHNIQUE: Ledesma scale ultrasound with color flow and spectral Doppler imaging of the deep venous systems of the right lower extremity performed. FINDINGS: There is absence of compression and decreased flow due to thrombus in the right popliteal vein. There is also thickening of the wall of the proximal femoral vein. This, however, compresses. Remainder of the deep venous system of the right lower extremity is otherwise patent. IMPRESSION: Findings consistent with deep venous thrombosis in the right lower extremity. Discussed over the telephone with ER physician, Dr. Trevor Deal, at [phone] hours. CODE CR.
--- NOTE | 2019-10-23 15:08 | EKG ---
Test Reason : Blood Pressure : / mmHG Vent. Rate : 099 BPM Atrial Rate : 099 BPM P-R Int : 166 ms QRS Dur : 090 ms QT Int : 372 ms P-R-T Axes : 000 -56 077 degrees QTc Int : 477 ms Sinus rhythm with occasional Premature ventricular complexes Left anterior fascicular block Possible Lateral infarct , age undetermined Abnormal ECG Confirmed by CARLA PYLE MD ([id number]), film and video editor DIAZ ARIAS ([id number]) on 10/23/2019 3:08:00 PM Referred By: Confirmed By:CARLA PYLE MD
== END 2019-10-22 09:27 | disposition home or self-care (01) ==
LOC: ERS 07:19
DX: I82.431 Acute embolism and thrombosis of right popliteal vein (principal); I82.411 Acute embolism and thrombosis of right femoral vein; Z87.891 Personal history of nicotine dependence; Z79.899 Other long term (current) drug therapy
CPT/HCPCS: 70450; 80053; 83605; 85025; 93005

== ENCOUNTER 2021-02-19 13:48 | Outpatient (CLI) | payer MEDICARE ==
[2021-02-19 15:06] LABS: #Monocytes 0.6 10x3/uL (0.0-1.1); #Neutrophils 4.1 10x3/uL (1.5-8.4); %Basophils 0.3 % (0.0-2.0); %Eosinophils 0.4 % (0.0-6.0); %Lymphocytes 29.4 % (18.0-47.0); %Monocytes 8.2 % (0.0-10.0); %Neutrophils 61.4 % (40.0-75.0); Mean Corpuscular HGB CONC 34.1 g/dL (32.0-36.0); Mean Corpuscular Hemoglobin 32.5 pg (27.0-33.0); Mean Corpuscular Volume 95.1 fl (81.2-95.1); Mean Platelet Volume 9.1 fl (7.4-10.4); Platelet Count 312 10x3/uL (150-450); RBC Distribution Width 15.2 % (11.5-14.5); Red Blood Cell (RBC) Count 4.31 10x6/uL (4.32-5.72); White Blood Cell (WBC) Count 6.7 10x3/uL (3.5-10.5)
[2021-02-19 15:28] LABS: ALT (SGPT) 11 U/L (8-55); AST (SGOT) 26 U/L (5-34); Albumin 3.2 g/dL (3.4-4.8); Alkaline Phosphatase 105 U/L (40-110); Anion Gap 17 mmol/L (10-20); BUN (Urea Nitrogen) 6 mg/dL (8.4-25.7); Bilirubin, Total 0.8 mg/dL (0.2-1.2); Calc. Creatinine Clearance 0 mL/min (70-130); Calcium 8.4 mg/dL (7.8-10.44); Carbon Dioxide 33 mmol/L (23-31); Chloride 89 mmol/L (98-107); Globulin 3.6 g/dL (2.4-3.5); Glucose 98 mg/dL (83-110); Protein, Total 6.8 g/dL (5.8-8.1); Sodium 136 mmol/L (136-145)
[2021-02-19 15:39] LABS: Potassium 2.5 mmol/L (3.5-5.1)
[2021-02-20 00:41] LABS: SARS-CoV-2 PCR by NAA Not Detected (NotDetected)
== END 2021-02-19 13:49 | disposition home or self-care (01) ==
LOC: LABBT 13:48
PROVIDERS: ATTEND Specialist
DX: Z01.818 Encounter for other preprocedural examination (principal); K80.20 Calculus of gallbladder without cholecystitis without obstruction; Z20.822 Contact with and (suspected) exposure to COVID-19
CPT/HCPCS: 71046; 80053; 85025; 93005; U0003; U0005; 93010

== ENCOUNTER 2021-02-22 10:58 | Inpatient (IN) | payer MEDICARE ==
[2021-02-21 12:47] VITALS: BMI 21.3
[2021-02-22] MEDS ORDERED: ceFAZolin 2 GM/DEX 5% 100 ML BAG ONE (11:39)
[2021-02-22] MEDS ORDERED: Acetaminophen 500 MG TAB ONE (11:39)
[2021-02-22] MEDS ORDERED: Ketorolac Tromethamine 30 MG/ML VIAL ONE (11:40)
[2021-02-22 11:50] LABS: Potassium 2.6 mmol/L (3.5-5.1)
[2021-02-22] MEDS ORDERED: Dextrose 50% Abboject 50 ML SYRINGE SLOW IVP PRN (15:25)
[2021-02-22] MEDS ORDERED: Ondansetron PF 4 MG/2 ML Vial IVP PRN (15:25)
[2021-02-22] MEDS ORDERED: Dextrose 5% in Water 1,000 ML IV PRN (15:25)
[2021-02-22] MEDS ORDERED: hydrALAZINE 20 MG/ML VIAL SLOW IVP PRN (15:25)
[2021-02-22] MEDS ORDERED: Lorazepam 2 MG/ML VIAL SLOW IVP PRN (15:25)
[2021-02-22] MEDS ORDERED: Potassium Chloride 20 MEQ TAB PO SCH ×2 (15:25→17:00)
[2021-02-22] MEDS ORDERED: Morphine 2 MG/ML VIAL SLOW IVP PRN (15:25)
[2021-02-22] MEDS: D5 NS w/ 40 mEq KCl 1,000 ML IV SCH (15:55)
[2021-02-22 21:02] LABS: Potassium 3.1 mmol/L (3.5-5.1)
[2021-02-22] MEDS: Enoxaparin Sodium 40 MG/0.4 ML SYRINGE SC SCH (21:04)
[2021-02-22] MEDS: Mirtazapine 15 MG TAB PO SCH (21:04)
[2021-02-22] MEDS: Famotidine 20 MG TAB PO SCH (21:04)
[2021-02-22] MEDS: Megestrol Acetate 40 MG TAB PO SCH (21:04)
[2021-02-22] MEDS: Magnesium Oxide 400 MG TAB PO SCH (21:05)
[2021-02-23 06:31] LABS: #Eosinphils 0.1 thou/uL (0.0-0.7); #Lymphocytes 1.9 thou/uL (1.20-3.40); #Monocytes 0.5 thou/uL (0.11-0.59); #Neutrophils 1.4 thou/uL (1.40-6.50); %Basophils 0.9 % (0.0-1.0); %Eosinophils 3.1 % (0.0-10.0); %Lymphocytes 49.1 % (21.0-51.0); %Monocytes 11.5 % (0.0-10.0); %Neutrophils 35.3 % (42.0-75.0); Hemoglobin 11.3 g/dL (14.0-18.0); Mean Corpuscular HGB CONC 32.2 g/dL (32.0-36.0); Mean Corpuscular Hemoglobin 32.5 pg (27.0-31.0); Platelet Count 227 thou/uL (130-400); Red Blood Cell (RBC) Count 3.47 mill/uL (4.70-6.10)
[2021-02-23 06:55] LABS: Anion Gap 10 mmol/L (10-20); BUN (Urea Nitrogen) 4 mg/dL (8.4-25.7); Calc. Creatinine Clearance 66 mL/min (70-130); Calcium 7.1 mg/dL (7.8-10.44); Carbon Dioxide 35 mmol/L (23-31); Chloride 101 mmol/L (98-107); Glucose 94 mg/dL (83-110); Potassium 3.8 mmol/L (3.5-5.1); Sodium 142 mmol/L (136-145)
[2021-02-23] MEDS: Megestrol Acetate 40 MG TAB PO SCH ×3 (08:42→20:34)
[2021-02-23] MEDS: Magnesium Oxide 400 MG TAB PO SCH ×2 (08:42→20:34)
[2021-02-23] MEDS: Famotidine 20 MG TAB PO SCH ×2 (08:42→20:34)
[2021-02-23] MEDS: Tamsulosin HCl 0.4 MG CAP PO SCH (08:42)
[2021-02-23] MEDS: Finasteride 5 MG TAB PO SCH (08:42)
[2021-02-23] MEDS: Multivitamin W/ Minerals 1 TAB PO SCH (08:42)
[2021-02-23] MEDS: Thiamine 100 MG TAB PO SCH (08:42)
[2021-02-23] MEDS ORDERED: Multivitamins, Adult 10 ML, Folic Acid 1 MG, Thiamine HCl 100 MG in Dextrose 5 %-0.45 %... IV SCH (09:00)
[2021-02-23] MEDS ORDERED: Morphine 4 MG/ML VIAL SLOW IVP PRN ×2 (09:12→16:31)
[2021-02-23] MEDS: D5 NS w/ 40 mEq KCl 1,000 ML IV SCH (11:26)
[2021-02-23 12:19] LABS: SARS-CoV-2 PCR by NAA Not Detected (NotDetected)
[2021-02-23] MEDS ORDERED: ceFAZolin 2 GM/DEX 5% 100 ML BAG ONE (13:28)
[2021-02-23] MEDS ORDERED: Lidocaine 1% w/Epinephrine 1:100K 20 ML VIAL ONE (13:55)
[2021-02-23] MEDS ORDERED: Bupivacaine 0.25% HCL 30 ML VIAL ONE (13:55)
[2021-02-23] MEDS ORDERED: Fentanyl 100 MCG/2 ML VIAL ONE ×3 (13:57→16:37)
[2021-02-23] MEDS ORDERED: Lidocaine 1% PF 5 ML VIAL ONE (14:14)
[2021-02-23] MEDS ORDERED: Ondansetron PF 4 MG/2 ML Vial ONE (14:14)
[2021-02-23] MEDS ORDERED: PROPOFOL 200 MG/20 ML VIAL ONE (14:14)
[2021-02-23] MEDS ORDERED: Dexamethasone 20 MG/5 ML VIAL ONE (14:14)
[2021-02-23] MEDS ORDERED: Esmolol 100 MG/10 ML VIAL ONE (14:14)
[2021-02-23] MEDS ORDERED: PHENYLEPHRINE-NS 100 MCG/ML 10 ML SYRINGE ONE (14:14)
[2021-02-23] MEDS ORDERED: Rocuronium Bromide 10 MG/ML (10ML VIAL) ONE (14:14)
[2021-02-23] MEDS ORDERED: ePHEDrine 50 MG/ML VIAL ONE (14:14)
[2021-02-23] MEDS ORDERED: Ketorolac Tromethamine 30 MG/ML VIAL ONE (14:14)
[2021-02-23] MEDS ORDERED: Glycopyrrolate 0.2 MG/ML 5 ML SYRINGE ONE (14:14)
[2021-02-23] MEDS ORDERED: Ondansetron HCl/PF 4 MG/2 ML Vial IVP PRN (17:00)
[2021-02-23] MEDS ORDERED: Promethazine HCl 25 MG/ML VIAL IM/IV PRN (17:00)
[2021-02-23] MEDS: Potassium Chloride 30 MEQ in Dextrose 5 % And 0.9 % NaCl 1,000 ML IV SCH (19:40)
[2021-02-23] MEDS: Enoxaparin Sodium 40 MG/0.4 ML SYRINGE SC SCH (20:33)
[2021-02-23] MEDS: Mirtazapine 15 MG TAB PO SCH (20:34)
[2021-02-23] MEDS: Morphine 4 MG/ML VIAL SLOW IVP PRN (22:16)
[2021-02-24] MEDS: Morphine 4 MG/ML VIAL SLOW IVP PRN ×3 (05:04→18:10)
[2021-02-24] MEDS: Potassium Chloride 30 MEQ in Dextrose 5 % And 0.9 % NaCl 1,000 ML IV SCH ×2 (05:23→13:36)
[2021-02-24 07:49] LABS: ALT (SGPT) 11 U/L (8-55); AST (SGOT) 40 U/L (5-34); Albumin 2.6 g/dL (3.4-4.8); Alkaline Phosphatase 87 U/L (40-110); Anion Gap 13 mmol/L (10-20); BUN (Urea Nitrogen) 4 mg/dL (8.4-25.7); Bilirubin, Total 0.9 mg/dL (0.2-1.2); Calc. Creatinine Clearance 71 mL/min (70-130); Calcium 7.5 mg/dL (7.8-10.44); Carbon Dioxide 28 mmol/L (23-31); Chloride 102 mmol/L (98-107); Glucose 156 mg/dL (83-110); Potassium 3.8 mmol/L (3.5-5.1); Protein, Total 5.6 g/dL (5.8-8.1); Sodium 139 mmol/L (136-145)
[2021-02-24] MEDS: Finasteride 5 MG TAB PO SCH (08:12)
[2021-02-24] MEDS: Multivitamin W/ Minerals 1 TAB PO SCH (08:12)
[2021-02-24] MEDS: Famotidine 20 MG TAB PO SCH ×2 (08:12→20:39)
[2021-02-24] MEDS: Thiamine 100 MG TAB PO SCH (08:12)
[2021-02-24] MEDS: Tamsulosin HCl 0.4 MG CAP PO SCH (08:12)
[2021-02-24] MEDS: Megestrol Acetate 40 MG TAB PO SCH ×3 (08:12→20:40)
[2021-02-24] MEDS: Magnesium Oxide 400 MG TAB PO SCH ×2 (08:12→20:40)
[2021-02-24 08:46] LABS: #Lymphocytes 0.4 thou/uL (1.20-3.40); #Monocytes 0.4 thou/uL (0.11-0.59); #Neutrophils 8.6 thou/uL (1.40-6.50); %Eosinophils 0.3 % (0.0-10.0); %Lymphocytes 3.7 % (21.0-51.0); %Monocytes 3.9 % (0.0-10.0); %Neutrophils 92.1 % (42.0-75.0); Hemoglobin 13.3 g/dL (14.0-18.0); Mean Corpuscular HGB CONC 32.5 g/dL (32.0-36.0); Mean Corpuscular Hemoglobin 33.3 pg (27.0-31.0); Mean Platelet Volume 7.2 fL (7.4-10.4); Platelet Count 252 thou/uL (130-400); Red Blood Cell (RBC) Count 3.99 mill/uL (4.70-6.10); White Blood Cell (WBC) Count 9.4 thou/uL (4.8-10.8)
[2021-02-24] MEDS: Mirtazapine 15 MG TAB PO SCH (20:39)
[2021-02-24] MEDS: Enoxaparin Sodium 40 MG/0.4 ML SYRINGE SC SCH (21:20)
[2021-02-25] MEDS: Morphine 4 MG/ML VIAL SLOW IVP PRN ×2 (00:15→04:40)
[2021-02-25] MEDS: Megestrol Acetate 40 MG TAB PO SCH ×3 (07:57→22:12)
[2021-02-25] MEDS: Magnesium Oxide 400 MG TAB PO SCH ×2 (07:57→22:12)
[2021-02-25] MEDS: Famotidine 20 MG TAB PO SCH ×2 (07:57→22:11)
[2021-02-25] MEDS ORDERED: Iothalamate Meglumine 60% 50 ML VIAL FS ONE (08:00)
[2021-02-25] MEDS ORDERED: Indomethacin 50 MG SUPP ONE (08:01)
[2021-02-25] MEDS ORDERED: Fentanyl 100 MCG/2 ML VIAL ONE (08:09)
[2021-02-25] MEDS ORDERED: PROPOFOL 200 MG/20 ML VIAL ONE (08:25)
[2021-02-25] MEDS ORDERED: Rocuronium Bromide 10 MG/ML (10ML VIAL) ONE (08:25)
[2021-02-25] MEDS ORDERED: Ondansetron PF 4 MG/2 ML Vial ONE (08:25)
[2021-02-25] MEDS ORDERED: Lidocaine 1% PF 5 ML VIAL ONE (08:25)
[2021-02-25] MEDS ORDERED: Glycopyrrolate 0.2 MG/ML 5 ML SYRINGE ONE (08:25)
[2021-02-25] MEDS ORDERED: Levofloxacin 500 mg/D5W 100 ml Premix Bag ONE (08:40)
[2021-02-25] MEDS ORDERED: Promethazine HCl 25 MG/ML VIAL IM PRN (09:21)
[2021-02-25] MEDS ORDERED: Promethazine HCl 25 MG/ML VIAL IVPB PRN (09:21)
[2021-02-25] MEDS ORDERED: Ondansetron HCl/PF 4 MG/2 ML Vial IVP PRN (09:21)
[2021-02-25] MEDS ORDERED: Lactated Ringer's 500 ML IV SCH (11:05)
[2021-02-25] MEDS ORDERED: Ibuprofen 600 MG TAB PO PRN (11:05)
[2021-02-25] MEDS ORDERED: Acetaminophen 500 MG TAB PO PRN (11:05)
[2021-02-25] MEDS: Thiamine 100 MG TAB PO SCH (14:13)
[2021-02-25] MEDS: Tamsulosin HCl 0.4 MG CAP PO SCH (14:13)
[2021-02-25] MEDS: Finasteride 5 MG TAB PO SCH (14:13)
[2021-02-25] MEDS: Multivitamin W/ Minerals 1 TAB PO SCH (14:13)
[2021-02-25] MEDS: Lactated Ringer's 1,000 ML IV SCH ×2 (15:19→23:57)
[2021-02-25] MEDS: Enoxaparin Sodium 40 MG/0.4 ML SYRINGE SC SCH (22:11)
[2021-02-25] MEDS: Mirtazapine 15 MG TAB PO SCH (22:12)
[2021-02-26] MEDS: Lactated Ringer's 1,000 ML IV SCH (04:59)
[2021-02-26] MEDS: traMADol HCl 50 MG TAB PO PRN ×2 (05:36→10:44)
[2021-02-26 06:03] LABS: ALT (SGPT) 7 U/L (8-55); AST (SGOT) 18 U/L (5-34); Albumin 2.1 g/dL (3.4-4.8); Alkaline Phosphatase 64 U/L (40-110); Anion Gap 10 mmol/L (10-20); BUN (Urea Nitrogen) 12 mg/dL (8.4-25.7); Bilirubin, Total 1.3 mg/dL (0.2-1.2); Calc. Creatinine Clearance 60 mL/min (70-130); Calcium 7.8 mg/dL (7.8-10.44); Carbon Dioxide 35 mmol/L (23-31); Chloride 97 mmol/L (98-107); Globulin 2.3 g/dL (2.4-3.5); Glucose 95 mg/dL (83-110); Lipase 8 U/L (8-78); Magnesium 1.7 mg/dL (1.6-2.6); Phosphorus 3.2 mg/dL (2.3-4.7); Potassium 4.2 mmol/L (3.5-5.1); Protein, Total 4.4 g/dL (5.8-8.1); Sodium 138 mmol/L (136-145)
[2021-02-26 06:30] LABS: Hemoglobin 12.6 g/dL (14.0-18.0); Mean Corpuscular HGB CONC 33.6 g/dL (32.0-36.0); Mean Corpuscular Hemoglobin 34.9 pg (27.0-31.0); Mean Platelet Volume 7.6 fL (7.4-10.4); Platelet Count 193 thou/uL (130-400); RBC Distribution Width 17.1 % (11.5-14.5); Red Blood Cell (RBC) Count 3.62 mill/uL (4.70-6.10); White Blood Cell (WBC) Count 8.4 thou/uL (4.8-10.8)
[2021-02-26 08:18] LABS: Band 22 % (5-11); Eosinophils 1 % (0-10); Lymphocytes 19 % (21-51); MDiff Complete? YES; Monocytes 3 % (0-10); Neutrophil 54 % (42-75); Platelet Morphology Comment Appears Adequate; Polychromasia SLIGHT = 2-3 cells (100X) (0-2/hpf); Reactive Lymphocytes 1 % (0-10)
[2021-02-26] MEDS: Finasteride 5 MG TAB PO SCH (08:38)
[2021-02-26] MEDS: Famotidine 20 MG TAB PO SCH ×2 (08:38→20:59)
[2021-02-26] MEDS: Megestrol Acetate 40 MG TAB PO SCH ×3 (08:39→20:59)
[2021-02-26] MEDS: Magnesium Oxide 400 MG TAB PO SCH ×2 (08:39→21:00)
[2021-02-26] MEDS: Polyethylene Glycol 3350 17 GM Packet PO SCH (08:40)
[2021-02-26] MEDS: Thiamine 100 MG TAB PO SCH (08:40)
[2021-02-26] MEDS: Multivitamin W/ Minerals 1 TAB PO SCH (08:40)
[2021-02-26] MEDS: Tamsulosin HCl 0.4 MG CAP PO SCH (08:40)
[2021-02-26] MEDS ORDERED: Milk Of Magnesia 30 ML UDCUP PO SCH (10:00)
[2021-02-26] MEDS: D5 0.9% NS w/ 20 mEq KCl 1,000 ML IV SCH (10:23)
[2021-02-26] MEDS ORDERED: Magnesium Citrate 300 ML BOT PO SCH (17:00)
[2021-02-26] MEDS: Mirtazapine 15 MG TAB PO SCH (21:00)
[2021-02-26] MEDS: Enoxaparin Sodium 40 MG/0.4 ML SYRINGE SC SCH (21:00)
[2021-02-27] MEDS: D5 0.9% NS w/ 20 mEq KCl 1,000 ML IV SCH (04:02)
[2021-02-27 06:48] LABS: #Eosinphils 0.2 thou/uL (0.0-0.7); #Lymphocytes 1.6 thou/uL (1.20-3.40); #Monocytes 0.5 thou/uL (0.11-0.59); #Neutrophils 3.4 thou/uL (1.40-6.50); %Basophils 0.4 % (0.0-1.0); %Eosinophils 3.5 % (0.0-10.0); %Lymphocytes 27.6 % (21.0-51.0); %Monocytes 8.7 % (0.0-10.0); %Neutrophils 59.9 % (42.0-75.0); Mean Corpuscular HGB CONC 33.3 g/dL (32.0-36.0); Mean Corpuscular Hemoglobin 34.7 pg (27.0-31.0); Mean Platelet Volume 7.4 fL (7.4-10.4); Platelet Count 253 thou/uL (130-400); Red Blood Cell (RBC) Count 3.76 mill/uL (4.70-6.10); White Blood Cell (WBC) Count 5.6 thou/uL (4.8-10.8)
[2021-02-27 07:29] LABS: ALT (SGPT) 8 U/L (8-55); AST (SGOT) 18 U/L (5-34); Albumin 2.3 g/dL (3.4-4.8); Alkaline Phosphatase 70 U/L (40-110); Anion Gap 13 mmol/L (10-20); BUN (Urea Nitrogen) 17 mg/dL (8.4-25.7); Bilirubin, Total 0.8 mg/dL (0.2-1.2); Calc. Creatinine Clearance 57 mL/min (70-130); Carbon Dioxide 31 mmol/L (23-31); Chloride 100 mmol/L (98-107); Globulin 2.5 g/dL (2.4-3.5); Glucose 95 mg/dL (83-110); Potassium 3.5 mmol/L (3.5-5.1); Protein, Total 4.8 g/dL (5.8-8.1); Sodium 140 mmol/L (136-145)
[2021-02-27] MEDS: Polyethylene Glycol 3350 17 GM Packet PO SCH (09:54)
[2021-02-27] MEDS: Finasteride 5 MG TAB PO SCH (09:55)
[2021-02-27] MEDS: Famotidine 20 MG TAB PO SCH (09:55)
[2021-02-27] MEDS: Magnesium Oxide 400 MG TAB PO SCH (09:55)
[2021-02-27] MEDS: Tamsulosin HCl 0.4 MG CAP PO SCH (09:56)
[2021-02-27] MEDS: Multivitamin W/ Minerals 1 TAB PO SCH (09:56)
[2021-02-27] MEDS: Thiamine 100 MG TAB PO SCH (09:56)
[2021-02-27] MEDS: Megestrol Acetate 40 MG TAB PO SCH (09:56)
[2021-02-27 11:27] VITALS: BP 119/76; TEMP 97.8
== END 2021-02-27 13:41 | disposition home or self-care (01) | DRG 418 ==
LOC: SDC 10:58 → INTOOBSV 15:24 → T4-B 15:24 → OBSVTOIN 02-25 10:27 → PACU-TCU 02-25 15:45 → 2NO 02-25 16:44 → T4-B 02-26 13:10
PROVIDERS: ADMIT Specialist; ATTEND Specialist
PROC: 0FB44ZZ Excision of Gallbladder, Percutaneous Endoscopic Approach (ICD-10-PCS; principal; 2021-02-22)
PROC: 0DQ84ZZ Repair Small Intestine, Percutaneous Endoscopic Approach (ICD-10-PCS; 2021-02-22)
PROC: 0F788DZ Dilation of Cystic Duct with Intraluminal Device, Via Natural or Artificial Opening Endoscopic (ICD-10-PCS; 2021-02-25)
DX: K80.10 Calculus of gallbladder with chronic cholecystitis without obstruction (principal); K91.89 Other postprocedural complications and disorders of digestive system; I47.1 Supraventricular tachycardia; F03.90 Unspecified dementia, unspecified severity, without behavioral disturbance, psychotic disturbance, mood disturbance, and anxiety; I10 Essential (primary) hypertension; I48.0 Paroxysmal atrial fibrillation; E78.5 Hyperlipidemia, unspecified; M19.90 Unspecified osteoarthritis, unspecified site; Z20.822 Contact with and (suspected) exposure to COVID-19; H40.9 Unspecified glaucoma; I25.2 Old myocardial infarction; Z85.038 Personal history of other malignant neoplasm of large intestine; Z90.49 Acquired absence of other specified parts of digestive tract; Z98.890 Other specified postprocedural states; Z86.718 Personal history of other venous thrombosis and embolism; Z88.7 Allergy status to serum and vaccine; Z79.01 Long term (current) use of anticoagulants; Z79.899 Other long term (current) drug therapy
CPT/HCPCS: 36415; 36416; 71046; 74330; 80048; 80053; 82247; 83690; 83735; 84100; 84132; 85025; 88304; 88341; 88342; 93005; 93010; 93306; 96365; 96366; 96372; 96375; 96376; G0378; J1100; J1650; J1885; J1956; J2060; J2270; J2405; J2704; J3010; J3411; J3480; J3490; J7042; J7120; Q9961; S0020; S0179; U0003; U0005

== ENCOUNTER 2021-03-30 08:54 | Outpatient (CLI) | payer MEDICARE ==
[2021-03-30 18:08] LABS: SARS-CoV-2 PCR by NAA Not Detected (NotDetected)
== END 2021-03-30 08:55 | disposition home or self-care (01) ==
LOC: LABBT 08:54
PROVIDERS: ATTEND Internal Medicine Gastroenterology
DX: Z01.812 Encounter for preprocedural laboratory examination (principal); K91.89 Other postprocedural complications and disorders of digestive system; Z20.822 Contact with and (suspected) exposure to COVID-19
CPT/HCPCS: U0003; U0005

== ENCOUNTER 2021-04-04 06:51 | Day surgery (SDC) | payer MEDICARE ==
[2021-04-03 12:15] VITALS: BMI 23.3
[2021-04-04] MEDS ORDERED: Fentanyl 100 MCG/2 ML VIAL ONE (07:27)
[2021-04-04] MEDS ORDERED: PHENYLEPHRINE-NS 100 MCG/ML 10 ML SYRINGE ONE ×2 (07:27→09:22)
[2021-04-04] MEDS ORDERED: SUGAMMADEX SODIUM 200 MG/2 ML VIAL ONE (07:27)
[2021-04-04] MEDS ORDERED: Iothalamate Meglumine 60% 50 ML VIAL FS ONE (09:02)
[2021-04-04] MEDS ORDERED: Levofloxacin 500 mg/D5W 100 ml Premix Bag ONE (09:06)
[2021-04-04] MEDS ORDERED: Rocuronium Bromide 10 MG/ML (10ML VIAL) ONE (09:22)
[2021-04-04] MEDS ORDERED: PROPOFOL 200 MG/20 ML VIAL ONE (09:22)
[2021-04-04] MEDS ORDERED: Ondansetron PF 4 MG/2 ML Vial ONE (09:22)
[2021-04-04] MEDS ORDERED: Lidocaine 1% PF 5 ML VIAL ONE (09:22)
== END 2021-04-04 11:55 | disposition home or self-care (01) ==
LOC: SDC 06:51
PROVIDERS: ATTEND Internal Medicine Gastroenterology
PROC: 0FPB8DZ Removal of Intraluminal Device from Hepatobiliary Duct, Via Natural or Artificial Opening Endoscopic (ICD-10-PCS; principal; 2021-04-04)
DX: K91.89 Other postprocedural complications and disorders of digestive system (principal); K82.8 Other specified diseases of gallbladder; Z79.01 Long term (current) use of anticoagulants; Z79.899 Other long term (current) drug therapy; Z88.7 Allergy status to serum and vaccine; Z91.030 Bee allergy status
CPT/HCPCS: 43275; 74330; Q9961; J1956; J2405; J2704; J3010

== ENCOUNTER 2022-01-07 13:09 | Outpatient (CLI) | payer MEDICARE ==
[2022-01-07 17:17] LABS: #Basophils 0.1 thou/uL (0.0-0.2); #Eosinphils 0.1 thou/uL (0.0-0.7); #Lymphocytes 1.2 thou/uL (1.20-3.40); #Monocytes 0.6 thou/uL (0.11-0.59); #Neutrophils 5.7 thou/uL (1.40-6.50); %Basophils 0.7 % (0.0-1.0); %Eosinophils 0.8 % (0.0-10.0); %Lymphocytes 16.3 % (21.0-51.0); %Monocytes 7.4 % (0.0-10.0); %Neutrophils 74.8 % (42.0-75.0); Hemoglobin 14.6 g/dL (14.0-18.0); MDiff Complete? YES; Macrocytosis SLIGHT = 6-15 cells (100X) (0-5/hpf); Mean Corpuscular HGB CONC 33.8 g/dL (32.0-36.0); Mean Corpuscular Hemoglobin 35.7 pg (27.0-31.0); Mean Platelet Volume 6.7 fL (7.4-10.4); Platelet Count 311 thou/uL (130-400); Platelet Morphology Comment Appears Adequate; RBC Distribution Width 14.3 % (11.5-14.5); Red Blood Cell (RBC) Count 4.08 mill/uL (4.70-6.10); White Blood Cell (WBC) Count 7.6 thou/uL (4.8-10.8)
[2022-01-07 17:33] LABS: ALT (SGPT) Less than 7 U/L (8-55); AST (SGOT) 15 U/L (5-34); Albumin 4.3 g/dL (3.4-4.8); Alkaline Phosphatase 59 U/L (40-110); Anion Gap 18 mmol/L (10-20); BUN (Urea Nitrogen) 17 mg/dL (8.4-25.7); Bilirubin, Total 0.6 mg/dL (0.2-1.2); Calc. Creatinine Clearance 0 mL/min (70-130); Calcium 9.3 mg/dL (7.8-10.44); Carbon Dioxide 22 mmol/L (23-31); Chloride 99 mmol/L (98-107); Estimated GFR 79; Globulin 3.6 g/dL (2.4-3.5); Glucose 112 mg/dL (83-110); Potassium 4.6 mmol/L (3.5-5.1); Protein, Total 7.9 g/dL (5.8-8.1); Sodium 134 mmol/L (136-145)
== END 2022-01-07 13:10 | disposition home or self-care (01) ==
LOC: SCSRAD 13:09
PROVIDERS: ATTEND Family Medicine
DX: R19.7 Diarrhea, unspecified (principal)
CPT/HCPCS: 36415; 74019; 80053; 85025

== ENCOUNTER 2022-04-18 09:30 | Outpatient (CLI) | payer MEDICARE | END 2022-04-18 09:31 | disposition home or self-care (01) | LOC: RAD 09:30 | PROVIDERS: ATTEND Family Medicine | DX: R13.10 Dysphagia, unspecified (principal); K44.9 Diaphragmatic hernia without obstruction or gangrene; R29.2 Abnormal reflex | CPT/HCPCS: 74220 ==

== ENCOUNTER 2023-07-16 17:41 | Inpatient (IN) | payer MEDICARE ==
[~2023-07-16 17:41] MED LIST: Iopamidol-370 76% 500 ML MDV (1 ML CHARGE) ONE
[2023-07-16] MEDS ORDERED: Acetaminophen 650 MG Suppository PR PRN (17:59)
[2023-07-16] MEDS ORDERED: Morphine 2 MG/ML VIAL SLOW IVP PRN (18:41)
[2023-07-16 18:56] LABS: #Neutrophils 10.2 thou/uL (1.40-6.50); %Basophils 0.1 % (0.0-1.0); %Eosinophils 0.1 % (0.0-10.0); %Lymphocytes 7.8 % (21.0-51.0); %Monocytes 8.1 % (0.0-10.0); %Neutrophils 83.4 % (42.0-75.0); Hematocrit 37.8 % (42.0-52.0); Hemoglobin 13.1 g/dL (14.0-18.0); Mean Corpuscular HGB CONC 34.7 g/dL (32.0-36.0); Mean Corpuscular Hemoglobin 34.3 pg (27.0-31.0); Mean Platelet Volume 9.3 fL (7.4-10.4); Platelet Count 402 10x3/uL (130-400); RBC Distribution Width 14.6 % (11.5-14.5); Red Blood Cell (RBC) Count 3.82 mill/uL (4.70-6.10); White Blood Cell (WBC) Count 12.3 10x3/uL (4.8-10.8)
[2023-07-16 19:08] LABS: Lactic Acid 2.3 mmol/L (0.5-2.2)
[2023-07-16] MEDS ORDERED: Glucagon 1 MG/ML KIT IM PRN (19:11)
[2023-07-16] MEDS ORDERED: Dextrose 5% in Water 1,000 ML IV PRN (19:11)
[2023-07-16] MEDS ORDERED: Dextrose 50% Abboject 50 ML SYRINGE SLOW IVP PRN (19:11)
[2023-07-16 19:14] LABS: ALT (SGPT) 12 U/L (8-55); AST (SGOT) 35 U/L (5-34); Albumin 3.5 g/dL (3.4-4.8); Anion Gap 13 mmol/L (10-20); BUN (Urea Nitrogen) 28 mg/dL (8.4-25.7); Bilirubin, Total 0.4 mg/dL (0.2-1.2); CRP (Inflammatory) 6.07 mg/dL (= or < 0.5); Calc. Creatinine Clearance 39 mL/min (70-130); Calcium 8.6 mg/dL (7.8-10.44); Carbon Dioxide 30 mmol/L (23-31); Chloride 94 mmol/L (98-107); Estimated GFR 65; Globulin 3.3 g/dL (2.4-3.5); Glucose 116 mg/dL (83-110); Potassium 4.8 mmol/L (3.5-5.1); Protein, Total 6.8 g/dL (5.8-8.1); Sodium 132 mmol/L (136-145)
[2023-07-16 19:21] LABS: Alkaline Phosphatase 68 U/L (40-110); INR-International Normal Ratio 3.7; Prothrombin Time 37.2 sec (12.0-14.7)
[2023-07-16 19:22] LABS: PTT 63.3 sec (22.9-36.1)
[2023-07-16 20:19] LABS: Magnesium 1.2 mg/dL (1.6-2.6)
[2023-07-16] MEDS ORDERED: Magnesium Sulfate 4 GM in Sodium Chloride 0.9% 250 ML 250 ML IVPB SCH (20:45)
[2023-07-16] MEDS ORDERED: Vancomycin 1 GM in Premix 1 BAG IVPB SCH (21:00)
[2023-07-16] MEDS: traMADol HCl 50 MG TAB PO SCH (21:26)
[2023-07-16] MEDS: Mag-Al Plus 1200/1200/120 MG (30 mL) UDCUP PO SCH (21:28)
[2023-07-16] MEDS: Cefepime 1 GM in Sodium Chloride 0.9% 100 ML IVPB SCH (21:29)
[2023-07-16] MEDS: Magnesium Sulfate In Water 4 GM in Premix 1 BAG IVPB SCH (21:30)
[2023-07-16] MEDS: Vancomycin (BATCH) 1.5 GM in Premix 1 BAG IVPB SCH (21:32)
[2023-07-16] MEDS: Sodium Chloride 0.9% 1,000 ML IV SCH (21:33)
[2023-07-16] MEDS: Famotidine 20 MG TAB PO SCH (21:35)
[2023-07-16] MEDS ORDERED: Electrolyte Replacement Protocol 1 EACH FS SCH (23:45)
[2023-07-17] MEDS: traMADol HCl 50 MG TAB PO PRN (00:05)
[2023-07-17 05:15] LABS: #Monocytes 0.9 thou/uL (0.11-0.59); #Neutrophils 7.2 thou/uL (1.40-6.50); %Basophils 0.1 % (0.0-1.0); %Eosinophils 0.3 % (0.0-10.0); %Lymphocytes 10.9 % (21.0-51.0); %Neutrophils 78.2 % (42.0-75.0); Hematocrit 30.3 % (42.0-52.0); Hemoglobin 10.3 g/dL (14.0-18.0); Mean Corpuscular Hemoglobin 33.4 pg (27.0-31.0); Mean Corpuscular Volume 98.4 fl (78.0-98.0); Mean Platelet Volume 9.1 fL (7.4-10.4); Platelet Count 310 10x3/uL (130-400); RBC Distribution Width 14.6 % (11.5-14.5); Red Blood Cell (RBC) Count 3.08 mill/uL (4.70-6.10); White Blood Cell (WBC) Count 9.2 10x3/uL (4.8-10.8)
[2023-07-17] MEDS: Vancomycin HCl 750 MG in Sodium Chloride 0.9% 250 ML 250 ML IVPB SCH (06:28)
[2023-07-17 06:55] LABS: Anion Gap 12 mmol/L (10-20); BUN (Urea Nitrogen) 18 mg/dL (8.4-25.7); Calc. Creatinine Clearance 67 mL/min (70-130); Calcium 6.1 mg/dL (7.8-10.44); Carbon Dioxide 21 mmol/L (23-31); Chloride 107 mmol/L (98-107); Estimated GFR 92; Glucose 76 mg/dL (83-110); Magnesium 2.2 mg/dL (1.6-2.6); Potassium 3.1 mmol/L (3.5-5.1); Sodium 137 mmol/L (136-145)
[2023-07-17 08:58] LABS: Anion Gap 11 mmol/L (10-20); BUN (Urea Nitrogen) 16 mg/dL (8.4-25.7); Calc. Creatinine Clearance 66 mL/min (70-130); Carbon Dioxide 21 mmol/L (23-31); Chloride 106 mmol/L (98-107); Estimated GFR 91; Glucose 76 mg/dL (83-110); Potassium 3.4 mmol/L (3.5-5.1); Sodium 135 mmol/L (136-145)
[2023-07-17 09:08] LABS: Calcium 6.7 mg/dL (7.8-10.44); Critical Call Chemistry NUR.NEE AT 0908
[2023-07-17] MEDS: Tamsulosin HCl 0.4 MG CAP PO SCH (09:23)
[2023-07-17] MEDS: Floranex 1 GM Packet PO SCH (09:23)
[2023-07-17] MEDS: Finasteride 5 MG TAB PO SCH (09:24)
[2023-07-17] MEDS: Potassium Chloride 20 MEQ TAB PO SCH ×2 (09:24→16:06)
[2023-07-17] MEDS: Cyanocobalamin (Vitamin B-12) 1,000 MCG TAB PO SCH (09:24)
[2023-07-17] MEDS: Folic Acid 1 MG TAB PO SCH (09:24)
[2023-07-17] MEDS: dilTIAZem CD 120 MG CAP PO SCH (09:24)
[2023-07-17] MEDS: Magnesium Oxide 400 MG TAB PO SCH (09:25)
[2023-07-17] MEDS: Calcium Polycarbophil 625 MG TAB PO SCH (13:07)
[2023-07-17] MEDS ORDERED: Potassium Chloride 20 MEQ TAB PO SCH (14:45)
[2023-07-17] MEDS: Calcium Carbonate 500 MG ChewTAB PO SCH ×2 (16:06→20:26)
[2023-07-17] MEDS: Sodium Chloride 0.9% 1,000 ML IV SCH (16:10)
[2023-07-17] MEDS: Vancomycin HCl 750 MG VIAL ONE (18:40)
[2023-07-17] MEDS: Cefepime 1 GM in Sodium Chloride 0.9% 100 ML IVPB SCH (20:27)
[2023-07-18 04:59] LABS: #Eosinphils 0.2 thou/uL (0.0-0.7); #Monocytes 0.7 thou/uL (0.11-0.59); #Neutrophils 7.7 thou/uL (1.40-6.50); %Basophils 0.3 % (0.0-1.0); %Lymphocytes 11.3 % (21.0-51.0); %Monocytes 7.4 % (0.0-10.0); %Neutrophils 78.4 % (42.0-75.0); Hematocrit 34.5 % (42.0-52.0); Hemoglobin 11.8 g/dL (14.0-18.0); Mean Corpuscular HGB CONC 34.2 g/dL (32.0-36.0); Mean Corpuscular Hemoglobin 33.9 pg (27.0-31.0); Mean Corpuscular Volume 99.1 fl (78.0-98.0); Mean Platelet Volume 9.1 fL (7.4-10.4); Platelet Count 358 10x3/uL (130-400); RBC Distribution Width 14.6 % (11.5-14.5); Red Blood Cell (RBC) Count 3.48 mill/uL (4.70-6.10); White Blood Cell (WBC) Count 9.9 10x3/uL (4.8-10.8)
[2023-07-18 05:18] LABS: Vancomycin, Trough 18.5 ug/mL
[2023-07-18 05:34] LABS: Anion Gap 15 mmol/L (10-20); BUN (Urea Nitrogen) 11 mg/dL (8.4-25.7); Calc. Creatinine Clearance 58 mL/min (70-130); Calcium 8.3 mg/dL (7.8-10.44); Carbon Dioxide 23 mmol/L (23-31); Chloride 100 mmol/L (98-107); Estimated GFR 88; Glucose 84 mg/dL (83-110); Potassium 4.8 mmol/L (3.5-5.1); Sodium 133 mmol/L (136-145)
[2023-07-18] MEDS: Vancomycin HCl 500 MG in Sodium Chloride 0.9% 100 ML IVPB SCH (06:01)
[2023-07-18] MEDS: Potassium Chloride 20 MEQ TAB PO SCH (11:35)
[2023-07-18] MEDS: Famotidine 20 MG TAB PO SCH (11:36)
[2023-07-18] MEDS: Sodium Chloride 0.9% 1,000 ML IV SCH (18:50)
[2023-07-18] MEDS: QUEtiapine 25 MG TAB PO SCH (20:45)
[2023-07-18] MEDS: Enoxaparin 60 MG (0.6 mL) SYRINGE SC SCH (20:45)
[2023-07-19 05:40] LABS: #Eosinphils 0.2 thou/uL (0.0-0.7); #Monocytes 1.1 thou/uL (0.11-0.59); #Neutrophils 6.9 thou/uL (1.40-6.50); %Basophils 0.4 % (0.0-1.0); %Lymphocytes 14.6 % (21.0-51.0); %Monocytes 11.4 % (0.0-10.0); %Neutrophils 70.8 % (42.0-75.0); Hematocrit 38.4 % (42.0-52.0); Hemoglobin 12.8 g/dL (14.0-18.0); Mean Corpuscular HGB CONC 33.3 g/dL (32.0-36.0); Mean Corpuscular Hemoglobin 33.3 pg (27.0-31.0); Platelet Count 397 10x3/uL (130-400); RBC Distribution Width 14.6 % (11.5-14.5); Red Blood Cell (RBC) Count 3.84 mill/uL (4.70-6.10); White Blood Cell (WBC) Count 9.8 10x3/uL (4.8-10.8)
[2023-07-19 06:10] LABS: Anion Gap 14 mmol/L (10-20); BUN (Urea Nitrogen) 12 mg/dL (8.4-25.7); Calc. Creatinine Clearance 54 mL/min (70-130); Calcium 9.2 mg/dL (7.8-10.44); Carbon Dioxide 22 mmol/L (23-31); Chloride 102 mmol/L (98-107); Estimated GFR 86; Glucose 96 mg/dL (83-110); Potassium 4.5 mmol/L (3.5-5.1); Sodium 133 mmol/L (136-145)
[2023-07-19 18:52] LABS: Vancomycin, Trough 18.4 ug/mL
[2023-07-20 06:04] LABS: #Basophils 0.1 thou/uL (0.0-0.2); #Eosinphils 0.5 thou/uL (0.0-0.7); #Monocytes 1.3 thou/uL (0.11-0.59); #Neutrophils 6.2 thou/uL (1.40-6.50); %Basophils 0.5 % (0.0-1.0); %Eosinophils 5.2 % (0.0-10.0); %Lymphocytes 15.9 % (21.0-51.0); %Monocytes 13.5 % (0.0-10.0); %Neutrophils 64.1 % (42.0-75.0); Hemoglobin 13.1 g/dL (14.0-18.0); Mean Corpuscular HGB CONC 33.6 g/dL (32.0-36.0); Mean Corpuscular Hemoglobin 33.2 pg (27.0-31.0); Mean Corpuscular Volume 98.7 fl (78.0-98.0); Mean Platelet Volume 9.5 fL (7.4-10.4); Platelet Count 356 10x3/uL (130-400); RBC Distribution Width 14.6 % (11.5-14.5); Red Blood Cell (RBC) Count 3.95 mill/uL (4.70-6.10); White Blood Cell (WBC) Count 9.7 10x3/uL (4.8-10.8)
[2023-07-20 06:30] LABS: Anion Gap 17 mmol/L (10-20); BUN (Urea Nitrogen) 12 mg/dL (8.4-25.7); Calc. Creatinine Clearance 69 mL/min (70-130); Carbon Dioxide 20 mmol/L (23-31); Chloride 102 mmol/L (98-107); Estimated GFR 89; Glucose 73 mg/dL (83-110); Potassium 5.2 mmol/L (3.5-5.1); Sodium 134 mmol/L (136-145)
[2023-07-20 13:10] LABS: Potassium 5.1 mmol/L (3.5-5.1)
[2023-07-21 05:38] LABS: #Eosinphils 0.5 thou/uL (0.0-0.7); #Monocytes 1.3 thou/uL (0.11-0.59); #Neutrophils 5.2 thou/uL (1.40-6.50); %Basophils 0.5 % (0.0-1.0); %Eosinophils 6.2 % (0.0-10.0); %Lymphocytes 16.3 % (21.0-51.0); %Monocytes 14.9 % (0.0-10.0); %Neutrophils 60.8 % (42.0-75.0); Hematocrit 37.1 % (42.0-52.0); Hemoglobin 12.7 g/dL (14.0-18.0); Mean Corpuscular HGB CONC 34.2 g/dL (32.0-36.0); Mean Corpuscular Hemoglobin 33.3 pg (27.0-31.0); Mean Corpuscular Volume 97.4 fl (78.0-98.0); Mean Platelet Volume 9.5 fL (7.4-10.4); Platelet Count 343 10x3/uL (130-400); RBC Distribution Width 14.6 % (11.5-14.5); Red Blood Cell (RBC) Count 3.81 mill/uL (4.70-6.10); White Blood Cell (WBC) Count 8.6 10x3/uL (4.8-10.8)
[2023-07-21] MEDS: FLU VACC QS2023(65UP)/MF59C/PF 60 MCG/0.5 ML SYRINGE IM ONE (07:43)
[2023-07-21 07:57] LABS: Vancomycin, Trough 26.8 ug/mL
[2023-07-21 07:59] LABS: Anion Gap 15 mmol/L (10-20); BUN (Urea Nitrogen) 12 mg/dL (8.4-25.7); Calc. Creatinine Clearance 69 mL/min (70-130); Calcium 8.9 mg/dL (7.8-10.44); Carbon Dioxide 18 mmol/L (23-31); Chloride 103 mmol/L (98-107); Estimated GFR 89; Glucose 77 mg/dL (83-110); Potassium 4.4 mmol/L (3.5-5.1); Sodium 132 mmol/L (136-145)
[2023-07-21] MEDS: Aspirin 81 mg Enteric Coated Tablet PO SCH (17:27)
[2023-07-21 18:05] LABS: Vancomycin, Trough 18.6 ug/mL
[2023-07-21] MEDS: Famotidine 20 MG TAB PO SCH (21:17)
[2023-07-22 05:50] LABS: #Eosinphils 0.6 thou/uL (0.0-0.7); #Monocytes 1.2 thou/uL (0.11-0.59); #Neutrophils 6.6 thou/uL (1.40-6.50); %Basophils 0.2 % (0.0-1.0); %Eosinophils 6.2 % (0.0-10.0); %Lymphocytes 12.7 % (21.0-51.0); %Monocytes 12.4 % (0.0-10.0); %Neutrophils 67.7 % (42.0-75.0); Hematocrit 34.8 % (42.0-52.0); Hemoglobin 11.9 g/dL (14.0-18.0); Mean Corpuscular HGB CONC 34.2 g/dL (32.0-36.0); Mean Corpuscular Hemoglobin 33.6 pg (27.0-31.0); Mean Corpuscular Volume 98.3 fl (78.0-98.0); Mean Platelet Volume 9.1 fL (7.4-10.4); Platelet Count 327 10x3/uL (130-400); RBC Distribution Width 14.6 % (11.5-14.5); Red Blood Cell (RBC) Count 3.54 mill/uL (4.70-6.10); White Blood Cell (WBC) Count 9.8 10x3/uL (4.8-10.8)
[2023-07-22 06:06] LABS: Anion Gap 12 mmol/L (10-20); BUN (Urea Nitrogen) 17 mg/dL (8.4-25.7); Calc. Creatinine Clearance 71 mL/min (70-130); Calcium 8.7 mg/dL (7.8-10.44); Carbon Dioxide 24 mmol/L (23-31); Chloride 100 mmol/L (98-107); Estimated GFR 90; Glucose 89 mg/dL (83-110); Potassium 4.1 mmol/L (3.5-5.1); Sodium 132 mmol/L (136-145)
[2023-07-22] MEDS ORDERED: Heparin 10,000 UNITS/ 10 ML VIAL ONE (06:24)
[2023-07-22] MEDS ORDERED: Lidocaine 1% (PF) 30 ML VIAL ONE (06:24)
[2023-07-22] MEDS ORDERED: fentaNYL 50 mcg/mL 1 mL Vial ONE (07:15)
[2023-07-22] MEDS ORDERED: Protamine Sulfate 50 MG/5 ML VIAL ONE (07:45)
[2023-07-22] MEDS: Aspirin 81 mg Enteric Coated Tablet PO SCH (09:00)
[2023-07-22] MEDS ORDERED: Iopamidol 370 76% 100 ML VIAL ONE (11:00)
[2023-07-22] MEDS: Meropenem 1 GM in Sodium Chloride 0.9% 100 ML IVPB SCH (17:51)
[2023-07-23] MEDS: Meropenem 1 GM in Sodium Chloride 0.9% 100 ML IVPB SCH (02:36)
[2023-07-23] MEDS: diphenhydrAMINE 25 MG CAP PO SCH (03:20)
[2023-07-23 04:29] LABS: #Eosinphils 0.2 thou/uL (0.0-0.7); #Monocytes 1.2 thou/uL (0.11-0.59); #Neutrophils 19.3 thou/uL (1.40-6.50); %Basophils 0.2 % (0.0-1.0); %Eosinophils 0.9 % (0.0-10.0); %Lymphocytes 4.6 % (21.0-51.0); %Monocytes 5.5 % (0.0-10.0); %Neutrophils 87.9 % (42.0-75.0); Hematocrit 36.3 % (42.0-52.0); Hemoglobin 12.4 g/dL (14.0-18.0); Mean Corpuscular HGB CONC 34.2 g/dL (32.0-36.0); Mean Corpuscular Hemoglobin 33.2 pg (27.0-31.0); Mean Corpuscular Volume 97.3 fl (78.0-98.0); Mean Platelet Volume 9.6 fL (7.4-10.4); Platelet Count 374 10x3/uL (130-400); RBC Distribution Width 14.6 % (11.5-14.5); Red Blood Cell (RBC) Count 3.73 mill/uL (4.70-6.10); White Blood Cell (WBC) Count 21.9 10x3/uL (4.8-10.8)
[2023-07-23 04:47] LABS: Anion Gap 15 mmol/L (10-20); BUN (Urea Nitrogen) 19 mg/dL (8.4-25.7); Calc. Creatinine Clearance 66 mL/min (70-130); Calcium 8.8 mg/dL (7.8-10.44); Carbon Dioxide 21 mmol/L (23-31); Chloride 99 mmol/L (98-107); Estimated GFR 88; Glucose 99 mg/dL (83-110); Potassium 4.1 mmol/L (3.5-5.1); Sodium 131 mmol/L (136-145)
[2023-07-23] MEDS ORDERED: diphenhydrAMINE 50 MG CAP PO PRN (09:38)
[2023-07-23] MEDS: Apixaban 2.5 MG TAB PO SCH (23:28)
[2023-07-24 04:19] LABS: #Basophils 0.1 thou/uL (0.0-0.2); #Eosinphils 0.4 thou/uL (0.0-0.7); #Monocytes 1.1 thou/uL (0.11-0.59); #Neutrophils 22.1 thou/uL (1.40-6.50); %Basophils 0.2 % (0.0-1.0); %Eosinophils 1.8 % (0.0-10.0); %Lymphocytes 3.4 % (21.0-51.0); %Monocytes 4.3 % (0.0-10.0); %Neutrophils 89.4 % (42.0-75.0); Hematocrit 33.8 % (42.0-52.0); Hemoglobin 11.4 g/dL (14.0-18.0); Mean Corpuscular HGB CONC 33.7 g/dL (32.0-36.0); Mean Corpuscular Hemoglobin 32.9 pg (27.0-31.0); Mean Corpuscular Volume 97.4 fl (78.0-98.0); Mean Platelet Volume 9.9 fL (7.4-10.4); Platelet Count 331 10x3/uL (130-400); RBC Distribution Width 14.6 % (11.5-14.5); Red Blood Cell (RBC) Count 3.47 mill/uL (4.70-6.10); White Blood Cell (WBC) Count 24.7 10x3/uL (4.8-10.8)
[2023-07-24 04:53] LABS: Anion Gap 15 mmol/L (10-20); BUN (Urea Nitrogen) 28 mg/dL (8.4-25.7); Calc. Creatinine Clearance 67 mL/min (70-130); Calcium 8.4 mg/dL (7.8-10.44); Carbon Dioxide 22 mmol/L (23-31); Chloride 99 mmol/L (98-107); Estimated GFR 89; Glucose 101 mg/dL (83-110); Potassium 3.8 mmol/L (3.5-5.1); Sodium 132 mmol/L (136-145)
[2023-07-24 17:58] LABS: Vancomycin, Trough 16.7 ug/mL
[2023-07-25 04:56] LABS: Anion Gap 14 mmol/L (10-20); BUN (Urea Nitrogen) 28 mg/dL (8.4-25.7); Calc. Creatinine Clearance 66 mL/min (70-130); Calcium 8.5 mg/dL (7.8-10.44); Carbon Dioxide 20 mmol/L (23-31); Chloride 97 mmol/L (98-107); Estimated GFR 88; Glucose 92 mg/dL (83-110); Sodium 127 mmol/L (136-145)
[2023-07-25 06:20] LABS: #Basophils 0.1 thou/uL (0.0-0.2); #Eosinphils 0.8 thou/uL (0.0-0.7); #Neutrophils 21.5 thou/uL (1.40-6.50); %Basophils 0.2 % (0.0-1.0); %Eosinophils 3.1 % (0.0-10.0); %Lymphocytes 5.3 % (21.0-51.0); %Monocytes 4.1 % (0.0-10.0); %Neutrophils 86.4 % (42.0-75.0); Mean Corpuscular HGB CONC 34.4 g/dL (32.0-36.0); Mean Corpuscular Hemoglobin 33.8 pg (27.0-31.0); Mean Corpuscular Volume 98.5 fl (78.0-98.0); Mean Platelet Volume 9.7 fL (7.4-10.4); Platelet Count 332 10x3/uL (130-400); RBC Distribution Width 14.9 % (11.5-14.5); Red Blood Cell (RBC) Count 3.25 mill/uL (4.70-6.10); White Blood Cell (WBC) Count 24.9 10x3/uL (4.8-10.8)
[2023-07-25] MEDS: Acetaminophen 325 MG TAB PO PRN (11:16)
[2023-07-25] MEDS: DAPTOmycin 500 MG in Sodium Chloride 0.9% 50 ML IVPB SCH (11:18)
[2023-07-25] MEDS: diphenhydrAMINE 30 GM TUBE TOP PRN (11:32)
[2023-07-26 05:00] LABS: #Basophils 0.1 thou/uL (0.0-0.2); #Eosinphils 0.7 thou/uL (0.0-0.7); #Neutrophils 21.5 thou/uL (1.40-6.50); %Basophils 0.2 % (0.0-1.0); %Lymphocytes 4.8 % (21.0-51.0); %Monocytes 4.2 % (0.0-10.0); Hematocrit 33.7 % (42.0-52.0); Hemoglobin 11.5 g/dL (14.0-18.0); Mean Corpuscular HGB CONC 34.1 g/dL (32.0-36.0); Mean Corpuscular Hemoglobin 33.9 pg (27.0-31.0); Mean Corpuscular Volume 99.4 fl (78.0-98.0); Mean Platelet Volume 9.6 fL (7.4-10.4); Platelet Count 384 10x3/uL (130-400); RBC Distribution Width 14.7 % (11.5-14.5); Red Blood Cell (RBC) Count 3.39 mill/uL (4.70-6.10); White Blood Cell (WBC) Count 24.7 10x3/uL (4.8-10.8)
[2023-07-26 05:28] LABS: Anion Gap 17 mmol/L (10-20); BUN (Urea Nitrogen) 27 mg/dL (8.4-25.7); Calc. Creatinine Clearance 62 mL/min (70-130); Calcium 8.9 mg/dL (7.8-10.44); Carbon Dioxide 21 mmol/L (23-31); Chloride 97 mmol/L (98-107); Estimated GFR 87; Glucose 86 mg/dL (83-110); Potassium 4.1 mmol/L (3.5-5.1); Sodium 131 mmol/L (136-145)
[2023-07-27 06:09] LABS: #Basophils 0.1 thou/uL (0.0-0.2); #Eosinphils 0.4 thou/uL (0.0-0.7); #Monocytes 1.1 thou/uL (0.11-0.59); #Neutrophils 20.6 thou/uL (1.40-6.50); %Basophils 0.3 % (0.0-1.0); %Eosinophils 1.5 % (0.0-10.0); %Monocytes 4.7 % (0.0-10.0); %Neutrophils 86.5 % (42.0-75.0); Hematocrit 32.2 % (42.0-52.0); Mean Corpuscular HGB CONC 34.2 g/dL (32.0-36.0); Mean Corpuscular Hemoglobin 32.6 pg (27.0-31.0); Mean Corpuscular Volume 95.5 fl (78.0-98.0); Mean Platelet Volume 9.5 fL (7.4-10.4); Platelet Count 447 10x3/uL (130-400); RBC Distribution Width 14.6 % (11.5-14.5); Red Blood Cell (RBC) Count 3.37 mill/uL (4.70-6.10); White Blood Cell (WBC) Count 23.9 10x3/uL (4.8-10.8)
[2023-07-27 06:45] LABS: Anion Gap 15 mmol/L (10-20); BUN (Urea Nitrogen) 25 mg/dL (8.4-25.7); Calc. Creatinine Clearance 68 mL/min (70-130); Calcium 8.5 mg/dL (7.8-10.44); Carbon Dioxide 24 mmol/L (23-31); Chloride 98 mmol/L (98-107); Estimated GFR 89; Glucose 99 mg/dL (83-110); Potassium 3.9 mmol/L (3.5-5.1); Sodium 133 mmol/L (136-145)
[2023-07-27] MEDS: Meropenem 1 GM VIAL ONE (17:08)
[2023-07-28 04:58] LABS: #Basophils 0.1 thou/uL (0.0-0.2); #Eosinphils 0.2 thou/uL (0.0-0.7); #Neutrophils 13.3 thou/uL (1.40-6.50); %Basophils 0.5 % (0.0-1.0); %Eosinophils 1.2 % (0.0-10.0); %Lymphocytes 9.9 % (21.0-51.0); %Monocytes 6.1 % (0.0-10.0); Hematocrit 33.1 % (42.0-52.0); Hemoglobin 10.9 g/dL (14.0-18.0); Mean Corpuscular HGB CONC 32.9 g/dL (32.0-36.0); Mean Corpuscular Hemoglobin 32.2 pg (27.0-31.0); Mean Corpuscular Volume 97.6 fl (78.0-98.0); Mean Platelet Volume 9.1 fL (7.4-10.4); Platelet Count 452 10x3/uL (130-400); RBC Distribution Width 14.8 % (11.5-14.5); Red Blood Cell (RBC) Count 3.39 mill/uL (4.70-6.10); White Blood Cell (WBC) Count 16.4 10x3/uL (4.8-10.8)
[2023-07-28 06:17] LABS: Anion Gap 17 mmol/L (10-20); BUN (Urea Nitrogen) 23 mg/dL (8.4-25.7); Calc. Creatinine Clearance 69 mL/min (70-130); Calcium 8.9 mg/dL (7.8-10.44); Carbon Dioxide 24 mmol/L (23-31); Chloride 100 mmol/L (98-107); Estimated GFR 90; Glucose 92 mg/dL (83-110); Potassium 3.7 mmol/L (3.5-5.1); Sodium 137 mmol/L (136-145)
[2023-07-28] MEDS ORDERED: Midazolam HCl 2 mg/2 ml Vial ONE (09:25)
[2023-07-28] MEDS ORDERED: Ketamine In 0.9 % NaCl 50 MG/5 ML SYRINGE ONE (09:25)
[2023-07-28] MEDS ORDERED: PROPOFOL 20 ML ONE (09:28)
[2023-07-28] MEDS ORDERED: Phenylephrine 10 MG/ML VIAL ONE (09:54)
[2023-07-28] MEDS ORDERED: Lidocaine 1% (PF) 30 ML VIAL ONE (09:56)
[2023-07-28] MEDS ORDERED: Promethazine HCl 25 MG/ML VIAL IM PRN (10:22)
[2023-07-28] MEDS ORDERED: Ondansetron HCl/PF 4 MG/2 ML Vial IVP PRN (10:22)
[2023-07-29 05:37] LABS: #Basophils 0.1 thou/uL (0.0-0.2); #Eosinphils 0.5 thou/uL (0.0-0.7); #Monocytes 0.8 thou/uL (0.11-0.59); #Neutrophils 8.2 thou/uL (1.40-6.50); %Basophils 0.5 % (0.0-1.0); %Eosinophils 4.2 % (0.0-10.0); %Lymphocytes 13.2 % (21.0-51.0); %Monocytes 7.3 % (0.0-10.0); %Neutrophils 73.2 % (42.0-75.0); Hematocrit 31.9 % (42.0-52.0); Hemoglobin 10.8 g/dL (14.0-18.0); Mean Corpuscular HGB CONC 33.9 g/dL (32.0-36.0); Mean Corpuscular Hemoglobin 32.1 pg (27.0-31.0); Mean Corpuscular Volume 94.9 fl (78.0-98.0); Mean Platelet Volume 8.9 fL (7.4-10.4); Platelet Count 432 10x3/uL (130-400); RBC Distribution Width 14.9 % (11.5-14.5); Red Blood Cell (RBC) Count 3.36 mill/uL (4.70-6.10); White Blood Cell (WBC) Count 11.2 10x3/uL (4.8-10.8)
[2023-07-29 05:59] LABS: Anion Gap 16 mmol/L (10-20); BUN (Urea Nitrogen) 17 mg/dL (8.4-25.7); Calc. Creatinine Clearance 72 mL/min (70-130); Calcium 8.2 mg/dL (7.8-10.44); Carbon Dioxide 24 mmol/L (23-31); Chloride 101 mmol/L (98-107); Estimated GFR 91; Glucose 81 mg/dL (83-110); Potassium 3.2 mmol/L (3.5-5.1); Sodium 138 mmol/L (136-145)
[2023-07-29] MEDS: Potassium Chloride 20 MEQ TAB PO SCH (10:46)
[2023-07-29] MEDS ORDERED: Senokot S 8.6-50 MG TAB PO PRN (17:21)
[2023-07-29] MEDS: Apixaban 2.5 MG TAB PO SCH (21:27)
[2023-07-30] MEDS: Aspirin 81 mg Enteric Coated Tablet ONE (09:53)
[2023-07-30 15:09] VITALS: BMI 22.8
[2023-07-30] MEDS: traMADol HCl 50 MG TAB PO PRN (22:30)
[2023-07-31 05:34] LABS: #Basophils 0.1 thou/uL (0.0-0.2); #Eosinphils 0.5 thou/uL (0.0-0.7); #Monocytes 0.8 thou/uL (0.11-0.59); #Neutrophils 5.8 thou/uL (1.40-6.50); %Basophils 0.8 % (0.0-1.0); %Eosinophils 5.6 % (0.0-10.0); %Lymphocytes 15.7 % (21.0-51.0); %Monocytes 8.7 % (0.0-10.0); %Neutrophils 65.6 % (42.0-75.0); Hematocrit 31.6 % (42.0-52.0); Hemoglobin 10.6 g/dL (14.0-18.0); Mean Corpuscular HGB CONC 33.5 g/dL (32.0-36.0); Mean Corpuscular Hemoglobin 31.7 pg (27.0-31.0); Mean Corpuscular Volume 94.6 fl (78.0-98.0); Mean Platelet Volume 9.1 fL (7.4-10.4); Platelet Count 437 10x3/uL (130-400); RBC Distribution Width 15.2 % (11.5-14.5); Red Blood Cell (RBC) Count 3.34 mill/uL (4.70-6.10); White Blood Cell (WBC) Count 8.9 10x3/uL (4.8-10.8)
[2023-07-31 05:58] LABS: Anion Gap 14 mmol/L (10-20); BUN (Urea Nitrogen) 14 mg/dL (8.4-25.7); Calc. Creatinine Clearance 76 mL/min (70-130); Carbon Dioxide 25 mmol/L (23-31); Chloride 101 mmol/L (98-107); Estimated GFR 93; Glucose 90 mg/dL (83-110); Potassium 3.4 mmol/L (3.5-5.1); Sodium 137 mmol/L (136-145)
[2023-07-31] MEDS: Potassium Chloride 20 MEQ TAB PO SCH (09:32)
[2023-08-02 12:58] VITALS: BP 110/68; TEMP 97.8
== END 2023-08-02 15:03 | DRG 253 ==
LOC: 2NO 17:41 → SURG A 07-31 17:37
PROVIDERS: ADMIT Hospitalist; ATTEND Internal Medicine
PROC: 047C3DZ Dilation of Right Common Iliac Artery with Intraluminal Device, Percutaneous Approach (ICD-10-PCS; principal; 2023-07-22)
PROC: 047D3DZ Dilation of Left Common Iliac Artery with Intraluminal Device, Percutaneous Approach (ICD-10-PCS; 2023-07-22)
PROC: B41D1ZZ Fluoroscopy of Aorta and Bilateral Lower Extremity Arteries using Low Osmolar Contrast (ICD-10-PCS; 2023-07-22)
PROC: 0Y6W0Z1 Detachment at Left 4th Toe, High, Open Approach (ICD-10-PCS; 2023-07-28)
PROC: 0Y6Y0Z1 Detachment at Left 5th Toe, High, Open Approach (ICD-10-PCS; 2023-07-28)
DX: I70.261 Atherosclerosis of native arteries of extremities with gangrene, right leg (principal); I50.32 Chronic diastolic (congestive) heart failure; I82.503 Chronic embolism and thrombosis of unspecified deep veins of lower extremity, bilateral; M86.8X7 Other osteomyelitis, ankle and foot; M87.9 Osteonecrosis, unspecified; R64 Cachexia; R33.9 Retention of urine, unspecified; I48.91 Unspecified atrial fibrillation; K44.9 Diaphragmatic hernia without obstruction or gangrene; E83.42 Hypomagnesemia; I48.0 Paroxysmal atrial fibrillation; I45.5 Other specified heart block; I11.0 Hypertensive heart disease with heart failure; E83.51 Hypocalcemia; R21 Rash and other nonspecific skin eruption; B95.62 Methicillin resistant Staphylococcus aureus infection as the cause of diseases classified elsewhere; Z68.22 Body mass index [BMI] 22.0-22.9, adult; E87.6 Hypokalemia; Z79.01 Long term (current) use of anticoagulants; Z91.030 Bee allergy status; Z88.7 Allergy status to serum and vaccine; Z79.899 Other long term (current) drug therapy; Z98.41 Cataract extraction status, right eye; Z98.42 Cataract extraction status, left eye; Z90.49 Acquired absence of other specified parts of digestive tract; Z98.890 Other specified postprocedural states; Z87.891 Personal history of nicotine dependence; Z85.038 Personal history of other malignant neoplasm of large intestine
CPT/HCPCS: 36245; 36415; 36416; 37221; 75635; 75736; 80048; 80053; 80202; 83605; 83735; 85025; 85347; 85610; 85730; 86140; 87040; 87070; 87076; 87077; 87186; 87205; 88305; 88311; 93005; 93010; 97139; C1725; C1758; C1769; C1876; C1894; J0692; J0878; J1644; J1650; J2001; J2185; J2250; J2371; J2704; J2720; J3010; J3370; J3475; J3490; J7050; Q9967

== ENCOUNTER 2023-10-09 15:42 | Inpatient (IN) | payer MEDICARE ==
[2023-10-09] MEDS ORDERED: Morphine 4 MG/ML VIAL SLOW IVP PRN (16:37)
[2023-10-09] MEDS ORDERED: Ondansetron PF 4 MG/2 ML Vial IVP PRN (16:37)
[2023-10-09] MEDS ORDERED: Ipratropium/Albuterol 3 ML NEB NEB PRN (16:37)
[2023-10-09] MEDS ORDERED: Promethazine HCl 25 MG/ML VIAL IM PRN (16:37)
[2023-10-09 16:40] VITALS: BMI 20.8
[2023-10-09] MEDS: Piperacillin/Tazobactam 3.375 GM in Sodium Chloride 0.9% 100 ML IVPB SCH ×3 (18:19→22:10)
[2023-10-10 05:50] LABS: #Basophils 0.05 10x3/uL (0.0-0.2); %Basophils 0.4 % (0.0-1.0); %Eosinophils 8.8 % (0.0-10.0); %Lymphocytes 25.2 % (21.0-51.0); %Monocytes 7.7 % (0.0-10.0); %Neutrophils 57.5 % (42.0-75.0); Hematocrit 26.1 % (42.0-52.0); Hemoglobin 8.1 g/dL (14.0-18.0); Mean Corpuscular Hemoglobin 24.6 pg (27.0-31.0); Mean Corpuscular Volume 79.3 fL (78.0-98.0); Mean Platelet Volume 8.4 fL (7.4-10.4); Platelet Count 553 10x3/uL (130-400); Red Blood Cell (RBC) Count 3.29 mill/uL (4.70-6.10)
[2023-10-10 06:09] LABS: Anion Gap 13 mmol/L (10-20); BUN (Urea Nitrogen) 23 mg/dL (8.4-25.7); Calc. Creatinine Clearance 45 mL/min (70-130); Calcium 8.9 mg/dL (7.8-10.44); Carbon Dioxide 25 mmol/L (23-31); Chloride 100 mmol/L (98-107); Estimated GFR 77; Glucose 94 mg/dL (83-110); Potassium 3.8 mmol/L (3.5-5.1); Sodium 134 mmol/L (136-145)
[2023-10-10] MEDS ORDERED: PROPOFOL 20 ML ONE (07:17)
[2023-10-10] MEDS ORDERED: fentaNYL PF 100 MCG/2 ML SYRINGE ONE (07:17)
[2023-10-10] MEDS ORDERED: PHENYLEPHRINE-NS 100 MCG/ML 10 ML SYRINGE ONE ×2 (08:01→09:05)
[2023-10-10] MEDS ORDERED: Rocuronium Bromide 10 MG/ML (10ML VIAL) ONE (08:13)
[2023-10-10] MEDS ORDERED: Lidocaine 1% (PF) 30 ML VIAL ONE (08:51)
[2023-10-10] MEDS ORDERED: NEOSTIGMINE 3 MG/3 ML SYR 3 MG/3 ML SYRINGE ONE (09:24)
[2023-10-10] MEDS ORDERED: traMADol HCl 50 MG TAB PO PRN (10:53)
[2023-10-10 11:27] LABS: #Basophils 0.06 10x3/uL (0.0-0.2); %Basophils 0.4 % (0.0-1.0); %Eosinophils 7.2 % (0.0-10.0); %Lymphocytes 23.9 % (21.0-51.0); %Monocytes 7.5 % (0.0-10.0); %Neutrophils 60.6 % (42.0-75.0); Hematocrit 30.3 % (42.0-52.0); Hemoglobin 9.5 g/dL (14.0-18.0); Mean Corpuscular HGB CONC 31.4 g/dL (32.0-36.0); Mean Corpuscular Hemoglobin 26.4 pg (27.0-31.0); Mean Corpuscular Volume 84.2 fL (78.0-98.0); Platelet Count 494 10x3/uL (130-400); RBC Distribution Width 17.4 % (11.5-14.5)
[2023-10-10 11:37] LABS: Anion Gap 10 mmol/L (10-20); BUN (Urea Nitrogen) 21 mg/dL (8.4-25.7); Calc. Creatinine Clearance 50 mL/min (70-130); Calcium 8.8 mg/dL (7.8-10.44); Carbon Dioxide 26 mmol/L (23-31); Chloride 103 mmol/L (98-107); Estimated GFR 84; Glucose 99 mg/dL (83-110); Potassium 4.1 mmol/L (3.5-5.1); Sodium 135 mmol/L (136-145)
[2023-10-10] MEDS: Acetaminophen 500 MG TAB PO SCH (11:40)
[2023-10-10] MEDS: Ketorolac Tromethamine 30 MG (1 mL) VIAL IVP SCH (11:40)
[2023-10-10] MEDS: Gabapentin 300 MG CAP PO SCH (14:13)
[2023-10-11 05:30] LABS: #Basophils 0.07 10x3/uL (0.0-0.2); %Basophils 0.5 % (0.0-1.0); %Eosinophils 11.9 % (0.0-10.0); %Lymphocytes 26.8 % (21.0-51.0); %Neutrophils 51.4 % (42.0-75.0); Hemoglobin 8.7 g/dL (14.0-18.0); Mean Corpuscular HGB CONC 31.1 g/dL (32.0-36.0); Mean Corpuscular Hemoglobin 25.7 pg (27.0-31.0); Mean Corpuscular Volume 82.8 fL (78.0-98.0); Mean Platelet Volume 8.3 fL (7.4-10.4); Platelet Count 465 10x3/uL (130-400); RBC Distribution Width 17.2 % (11.5-14.5); Red Blood Cell (RBC) Count 3.38 mill/uL (4.70-6.10)
[2023-10-11 05:49] LABS: Anion Gap 12 mmol/L (10-20); BUN (Urea Nitrogen) 25 mg/dL (8.4-25.7); Calc. Creatinine Clearance 43 mL/min (70-130); Calcium 8.2 mg/dL (7.8-10.44); Carbon Dioxide 24 mmol/L (23-31); Chloride 103 mmol/L (98-107); Estimated GFR 72; Glucose 91 mg/dL (83-110); Sodium 135 mmol/L (136-145)
[2023-10-11] MEDS ORDERED: Cyclobenzaprine 10 MG TAB PO PRN (12:00)
[2023-10-11] MEDS ORDERED: Hyoscyamine SL 0.125 MG TAB PO PRN (12:00)
[2023-10-11] MEDS ORDERED: Senokot S 8.6-50 MG TAB PO PRN (12:00)
[2023-10-11] MEDS: Gabapentin 300 MG CAP PO SCH (15:15)
[2023-10-11] MEDS: Acetaminophen/Codeine 30-300mg Tablet PO SCH (15:17)
[2023-10-11] MEDS: Acetaminophen 325 MG TAB PO SCH (17:44)
[2023-10-11] MEDS: Apixaban 2.5 MG TAB PO SCH (20:49)
[2023-10-12] MEDS: Finasteride 5 MG TAB PO SCH (09:31)
[2023-10-12] MEDS: Pantoprazole DR 40 MG TAB PO SCH (09:31)
[2023-10-12] MEDS: Aspirin Chewable 81 MG TAB PO SCH (09:31)
[2023-10-12] MEDS: Tamsulosin HCl 0.4 MG CAP PO SCH (09:31)
[2023-10-12] MEDS: Calcium Polycarbophil 625 MG TAB PO SCH (09:31)
[2023-10-13 07:04] LABS: #Basophils 0.04 10x3/uL (0.0-0.2); %Basophils 0.3 % (0.0-1.0); %Eosinophils 11.8 % (0.0-10.0); %Monocytes 7.1 % (0.0-10.0); %Neutrophils 50.4 % (42.0-75.0); Hematocrit 27.5 % (42.0-52.0); Hemoglobin 8.4 g/dL (14.0-18.0); Mean Corpuscular HGB CONC 30.5 g/dL (32.0-36.0); Mean Corpuscular Hemoglobin 26.2 pg (27.0-31.0); Mean Corpuscular Volume 85.7 fL (78.0-98.0); Mean Platelet Volume 8.2 fL (7.4-10.4); Platelet Count 473 10x3/uL (130-400); RBC Distribution Width 17.8 % (11.5-14.5); Red Blood Cell (RBC) Count 3.21 mill/uL (4.70-6.10)
[2023-10-13 07:27] LABS: Anion Gap 11 mmol/L (10-20); BUN (Urea Nitrogen) 17 mg/dL (8.4-25.7); Calc. Creatinine Clearance 61 mL/min (70-130); Calcium 8.2 mg/dL (7.8-10.44); Carbon Dioxide 25 mmol/L (23-31); Chloride 108 mmol/L (98-107); Estimated GFR 89; Glucose 88 mg/dL (83-110); Potassium 3.9 mmol/L (3.5-5.1); Sodium 140 mmol/L (136-145)
[2023-10-14 16:34] VITALS: BP 115/61; TEMP 97.8
== END 2023-10-14 19:18 | DRG 475 ==
LOC: SURG B 15:44
PROVIDERS: ADMIT Student in an Organized Health Care Education/Training Program; ATTEND Student in an Organized Health Care Education/Training Program
PROC: 0Y6D0Z3 Detachment at Left Upper Leg, Low, Open Approach (ICD-10-PCS; principal; 2023-10-10)
PROC: 30233N1 Transfusion of Nonautologous Red Blood Cells into Peripheral Vein, Percutaneous Approach (ICD-10-PCS; 2023-10-10)
DX: T87.44 Infection of amputation stump, left lower extremity (principal); I50.32 Chronic diastolic (congestive) heart failure; I11.0 Hypertensive heart disease with heart failure; I48.91 Unspecified atrial fibrillation; E78.5 Hyperlipidemia, unspecified; Y83.5 Amputation of limb(s) as the cause of abnormal reaction of the patient, or of later complication, without mention of misadventure at the time of the procedure; T87.81 Dehiscence of amputation stump; D64.9 Anemia, unspecified; Z79.899 Other long term (current) drug therapy; Z85.038 Personal history of other malignant neoplasm of large intestine; Z90.49 Acquired absence of other specified parts of digestive tract; Z87.891 Personal history of nicotine dependence; Z88.7 Allergy status to serum and vaccine; Z86.718 Personal history of other venous thrombosis and embolism; Z79.01 Long term (current) use of anticoagulants; Z91.048 Other nonmedicinal substance allergy status
CPT/HCPCS: 36415; 36430; 80048; 85025; 86850; 86900; 86901; 88307; J1885; J2001; J2543; J2704; J3490; P9016

== ENCOUNTER 2024-03-30 09:43 | Outpatient (CLI) | payer MEDICARE | END 2024-03-30 09:44 | disposition home or self-care (01) | LOC: ULT 09:43 | PROVIDERS: ATTEND Family Medicine | DX: I70.90 Unspecified atherosclerosis (principal) | CPT/HCPCS: 93923 ==